=== PATIENT | male | born 1985 | race Caucasian/White ===

== ENCOUNTER → 2018-06-01 | Outpatient (CLI) | payer MEDICAID ==
[2018-06-01 14:03] LABS: ABSOLUTE EOSINOPHILS # (AUTO) 0.1 10^3/uL (0.0-0.6); ABSOLUTE LYMPHOCYTES (AUTO) 1.5 10^3/uL (0.5-4.7); ABSOLUTE MONOCYTES (AUTO) 0.5 10^3/uL (0.1-1.4); ABSOLUTE NEUT (AUTO) 3.2 10^3/uL (1.7-8.2); BASOPHILS % (AUTO) 0.8 % (0-2); EOSINOPHILS % (AUTO) 1.4 % (0-6); HEMATOCRIT 48.2 % (37.9-51.0); HEMOGLOBIN 16.7 g/dL (13.5-17.0); LYMPHOCYTES % (AUTO) 27.6 % (13-45); MEAN CORPUSCULAR HEMOGLOBIN 29.8 pg (27.0-33.4); MEAN CORPUSCULAR HGB CONC 34.6 g/dL (32.0-36.0); MEAN CORPUSCULAR VOLUME 86 fl (80-97); MONOCYTES % (AUTO) 9.2 % (3-13); PLATELET COUNT 194 10^3/uL (150-450); RED CELL DISTRIBUTION WIDTH 13.5 % (11.5-14.0); TOTAL CELLS COUNTED % (AUTO) 100 %; WHITE BLOOD COUNT 5.3 10^3/uL (4.0-10.5)
[2018-06-01 14:22] LABS: ALANINE AMINOTRANSFERASE 13 U/L (21-72); ALBUMIN 4.9 g/dL (3.5-5.0); ALKALINE PHOSPHATASE 93 U/L (38-126); ASPARTATE AMINO TRANSFERASE 21 U/L (17-59); BILIRUBIN,DIRECT 0.3 mg/dL (0.0-0.4); BILIRUBIN,TOTAL 0.4 mg/dL (0.2-1.3); TOTAL PROTEIN 8.2 g/dL (6.3-8.2)
== END ==
LOC: CAR 12:25
PROVIDERS: ATTEND Specialist
DX: G40.909 Epilepsy, unspecified, not intractable, without status epilepticus (principal); Z79.899 Other long term (current) drug therapy
CPT/HCPCS: 80076; 80184; 85025

== ENCOUNTER → 2019-02-26 | Outpatient (CLI) | payer MEDICAID ==
[2019-02-26 09:36] LABS: CHOLESTEROL 256.59 mg/dL (0-200); TRIGLYCERIDES 130 mg/dL (<150)
[2019-02-26 09:50] LABS: DIRECT LDL 154 mg/dL (<100)
== END ==
LOC: CAR 08:27
PROVIDERS: ATTEND Family Medicine
DX: E78.5 Hyperlipidemia, unspecified (principal); Z79.899 Other long term (current) drug therapy
CPT/HCPCS: 80061

== ENCOUNTER 2019-08-06 17:11 | Inpatient (IN) | payer MEDICAID ==
--- NOTE | 2019-08-06 18:08 | ER Document Report ---
ED General - General Mode of Arrival: Medic Information source: Emergency Med Personnel, [facility] Records, Outside Facility Records TRAVEL OUTSIDE OF THE [place] IN LAST 30 DAYS: No <PENG MARINELLI - Last Filed: 08/06/19 21:13> <JOSE JUAN CIFUENTES HERMAN - Last Filed: 08/07/19 00:24> - General Chief Complaint: Probable Seizure Stated Complaint: POSSIBLE SEIZURE Time Seen by Provider: 08/06/19 17:53 Primary Care Provider: COLLEEN JOSE MD [Primary Care Provider] - Follow up as needed Notes: This 34-year-old male patient brought the emergency room from the assisted. He was found on his back and had vomited. He appeared postictal, so they suspected he had had a seizure. They noted shallow respirations with a pulse ox of 92%. He has had a seizure and aspirated in the past. He does have cerebral palsy, spastic quadriplegia, profound mental retardation, seizure disorder, legally blind, with gastroesophageal reflux disease. Patient was a precipitous delivery at 28 weeks, on a ventilator 108 days severe RDS, multiple bilateral pneumothoraces requiring a total of 10 chest tubes during the first 6 weeks of life. Received total of 39 units packed RBCs, bilateral grade 3 hemorrhages with evidence of bilateral cystic encephalomalacia. Discharged home at the age of 5 months with apnea, bradycardia, feeding difficulties, failure to thrive, bronchopulmonary dysplasia, pneumonia and otitis media, and has continued to require multiple hospitalizations until he was around 10 years old. (PENG MARINELLI) - Related Data Allergies/Adverse Reactions: amoxicillin trihydrate [From Augmentin] Allergy (Unknown, Verified 01/25/11 08:45) Pertussis Immune Globulin * [Pertussis Immune Globulin] Allergy (Unknown, Verified 01/23/11 08:50) Potassium Clavulanate * [From Augmentin] Allergy (Unknown, Verified 01/25/11 08:45) Past Medical History - General Information source: Emergency Med Personnel, [facility] Records, Outside Facility Records - Social History Smoking Status: Never Smoker Cigarette use (# per day): No Chew tobacco use (# tins/day): No Smoking Education Provided: No Frequency of alcohol use: None Drug Abuse: None Lives with: [facility] Family History: Reviewed & Not Pertinent Patient has suicidal ideation: No Patient has homicidal ideation: No - Past Medical History Cardiac Medical History: Reports: Hx Hypercholesterolemia Pulmonary Medical History: Reports: Hx Pneumonia, Hx Intubation, Hx Respiratory Failure, Other - Reactive airways/chronic bronchitis EENT Medical History: Reports: Other - Blind Neurological Medical History: Reports: Hx Seizures, Other - Microcephaly, profound MR, spastic quadriplegia,cerebral palsy GI Medical History: Reports: Hx Gastroesophageal Reflux Disease, Hx Hiatal Hernia Musculoskeletal Medical History: Reports Other - Spastic quadriplegia Psychiatric Medical History: Reports: Other Past Surgical History: Reports: Other - Multiple chest tubes for bilateral pneumothoraces at . <PENG MARINELLI - Last Filed: 08/06/19 21:13> Physical Exam - Vital signs Interpretation: Hypoxic, Tachypneic - General General appearance: Alert In distress: Mild - HEENT Head: Atraumatic. No: Normocephalic - Microcephalic Eyes: Other - Bilateral blind Pupils: PERRL - Respiratory Respiratory status: Tachypnea Breath sounds: Rhonchi. No: Wheezing - Cardiovascular Rhythm: Regular Heart sounds: Normal auscultation Murmur: No - Abdominal Inspection: Normal Distension: Distended - Slightly distended, Tympanitic Bowel sounds: Normal Tenderness: Other - Palpating the abdomen the patient does grimace slightly. - Back Back: Normal - Neurological Neuro grossly intact: No - Psychological Associated symptoms: Other - Cannot evaluate due to his underlying cerebral dysfunction. - Skin Skin Temperature: Warm Skin Moisture: Dry Skin Color: Normal <PENG MARINELLI - Last Filed: 08/06/19 21:13> - Vital signs Vitals: Pulse Ox 99 08/06/19 17:16 - Extremities Notes: Patient has spastic quadriplegia with bilateral flexion contractures (PENG MARINELLI) - Neurological Notes: Patient has severe MR with spastic quadriplegia. He responds to noxious st imulus. (PENG MARINELLI) Course - Diagnostic Test Radiology reviewed: Image reviewed, Reports reviewed - Right basilar infiltrate - EKG Interpretation by Me EKG shows normal: Sinus rhythm, [place], Intervals, QRS Complexes. abnormal: ST-T Waves - Abnormal anterior lateral T abnormalities Rate: Tachycardia - 129 P Waves: LAE When compared to previous EKG there are: No significant change - Consults Dr. Blackburn Time consulted: 20:10 Consulted provider: will come to ER - Will come see the patient and start a central line. - Transfer of Care Care transferred to following provider: Dr. Cifuentes <PENG MARINELLI - Last Filed: 08/06/19 21:13> - Laboratory Result Diagrams: 08/06/19 22:12 08/06/19 22:12 - Consults dr. hu Time consulted: 00:20 - Agreed to admit patient to IMCU given respiratory rate improved Consulted provider: will see as inpatient <JOSE JUAN CIFUENTES IV - Last Filed: 08/07/19 00:24> - Re-evaluation Re-evalutation: 08/06/19 19:15 Chest x-ray shows a right lower lobe infiltrate consistent with aspiration. At this time patient's pulse ox is 90% on room air. Nasal cannula O2 had been ordered when he came in, but has not been applied yet I will asked the nurse to do that now. He does seem to have some retracting, audible rhonchi and is tachypneic. 08/06/19 20:20 Patient's pulse ox was only 92% on 2 L nasal cannula. I increased him to 4 L and O2 sat came up to 95%. At this time he has heart rate of 110, blood pressure 134/91, respiratory rate of 60. (PENG MARINELLI) 08/07/19 00:04 Patient was reevaluated by this MD. Patient's imaging and lab results were also reviewed. At this time the patient does not appear to be in acute respiratory distress. Patient was reportedly much more tachypneic earlier with a respiratory rate of about 60. At this point the patient does not seem to be breathing more than 20-24 times a minute and does not appear to been in any acute respiratory distress or at risk for impending respiratory failure at this time. Given his improvement, I do not feel the patient needs urgent ICU consultation as I do not feel he is at risk or showing clinical appearance of impending respiratory failure. Dr. Hu has been paged; he is covering for Dr. Jose. I am awaiting his return call to admit the patient. (JOSE JUAN CIFUENTES IV) - Vital Signs Vital signs: Temp Pulse Resp BP Pulse Ox 97.6 F 98 23 H 106/84 94 08/06/19 17:30 08/06/19 17:30 08/06/19 23:04 08/06/19 23:04 08/06/19 23:04 - Laboratory Laboratory results interpreted by me: 08/06/19 08/06/19 08/06/19 20:30 22:12 22:12 RBC 5.60 H Band Neutrophils % 9 H Lymphocytes % (Manual) 5 L ABG pO2 ABG HCO3 ABG O2 Saturation Potassium 3.5 L Glucose 145 H Urine Glucose (UA) 50 H Urine Ketones 20 H 08/06/19 22:50 RBC Band Neutrophils % Lymphocytes % (Manual) ABG pO2 62.1 L ABG HCO3 24.9 H ABG O2 Saturation 92.1 L Potassium Glucose Urine Glucose (UA) Urine Ketones - Consults dr. hu Reason for consultation: 08/07/19 00:21 aspiration pna (JOSE JUAN CIFUENTES IV) - Transfer of Care Notes: 08/06/19 21:13 Pending labs, ABG and KUB. Dr. Hu requests consultation with the inspecting supervisor if the patient is not an obvious ICU admission. (PENG MARINELLI) Critical Care Note - Critical Care Note Total time excluding time spent on procedures (mins): 40 <PENG MARINELLI - Last Filed: 08/06/19 21:13> Discharge <PENG MARINELLI - Last Filed: 08/06/19 21:13> - Discharge Admitting Provider: [facility] Unit Admitted: IMCU <JOSE JUAN CIFUENTES IV - Last Filed: 08/07/19 00:24> - Discharge Clinical Impression: Spastic quadriplegic cerebral palsy, Seizure disorder, Hypoxia Aspiration pneumonia Qualifiers: Aspiration pneumonia type: unspecified Laterality: right Lung location: lower lobe of lung Qualified Code(s): J69.0 - Pneumonitis due to inhalation of food an d vomit Cerebral palsy Qualifiers: Cerebral palsy type: spastic quadriplegic Qualified Code(s): G80.0 - Spastic quadriplegic cerebral palsy Dysphagia Qualifiers: Dysphagia type: unspecified Qualified Code(s): R13.10 - Dysphagia, unspecified Condition: Good Disposition: ADMITTED INPATIENT Referrals: COLLEEN JOSE MD [Primary Care Provider] - Follow up as needed
--- NOTE | 2019-08-06 18:10 | RADIOLOGY REPORT (SQ) ---
EXAM DESCRIPTION: CHEST SINGLE VIEW IMAGES COMPLETED DATE/TIME: 08/06/2019 6:01 pm REASON FOR STUDY: aspiration COMPARISON: 11/02/2018. NUMBER OF VIEWS: One view. TECHNIQUE: Single frontal radiographic view of the chest acquired. LIMITATIONS: None. FINDINGS: LUNGS AND PLEURA: Ill-defined patchy airspace disease in the right base is concerning for infiltrate. Aspiration is in the differential. Lungs are otherwise relatively clear. MEDIASTINUM AND HILAR STRUCTURES: No masses. Contour normal. HEART AND VASCULAR STRUCTURES: Heart normal in size. Normal vasculature. BONES: No acute findings. HARDWARE: None in the chest. OTHER: No other significant finding. IMPRESSION: Right base infiltrate. TECHNICAL DOCUMENTATION: JOB ID: [id number] 2010 [employer]- All Rights Reserved Reading location - IP/workstation name: [email or web address]
[2019-08-06] MEDS ORDERED: IPRATROPIUM/ALBUTEROL 0.5-2.5 MG/3 ML AMPUL NEB ONE (19:14)
[2019-08-06] MEDS ORDERED: METRONIDAZOLE 500 MG/NS RTU 500 MG/100 ML RTUPB IV ONE (19:19)
[2019-08-06] MEDS ORDERED: CEFTRIAXONE 1 GM/D5W RTU 1 GM/50 ML RTUPB IV ONE (19:19)
[2019-08-06] MEDS ORDERED: ALBUTEROL SULFATE 0.083% NEB 2.5 MG/3 ML AMPUL NEB ONE (20:22)
[2019-08-06 20:46] LABS: APPEARANCE,URINE CLEAR; BILIRUBIN,URINE NEGATIVE (NEGATIVE); COLOR,URINE YELLOW; GLUCOSE, URINE 50 mg/dL (NEGATIVE); KETONES,URINE 20 mg/dL (NEGATIVE); LEUKOCYTE ESTERASE,URINE NEGATIVE (NEGATIVE); NITRITE,URINE NEGATIVE (NEGATIVE); PROTEIN,URINE NEGATIVE (NEGATIVE); URINE SPECIFIC GRAVITY 1.017; UROBILINOGEN,URINE NEGATIVE mg/dL (<2.0)
--- NOTE | 2019-08-06 21:34 | RADIOLOGY REPORT (SQ) ---
CLINICAL INDICATION: upright, distention, resonant, vomiting. TECHNIQUE: Single portable upright image(s) of the abdomen. Imaging centered on the diaphragm COMPARISON: None. FINDINGS: Motion artifact. No evidence of high grade obstruction. No evidence of free air. Scoliosis. Pelvis not included in [id number]. IMPRESSION: No acute intra-abdominal process is identified.
--- NOTE | 2019-08-06 21:56 | RADIOLOGY REPORT (SQ) ---
EXAM DESCRIPTION: XR CHEST 1 VIEW COMPLETED DATE/TME: 08/06/2019 00:00 CLINICAL HISTORY: 34 years, Male, central line verification COMPARISON: Prior study from earlier the same day NUMBER OF VIEWS: One TECHNIQUE: Single frontal view of the chest was obtained portably LIMITATIONS: None. FINDINGS: Interval placement of right IJ approach central venous catheter with its tip located in the upper SVC. Cardiac and mediastinal contours are stable. Patchy right basilar opacity is noted, slightly increased from the prior. Left lung is overall clear. No pneumothorax or large pleural effusion. IMPRESSION: Interval placement of right IJ approach central venous catheter with its tip located in the upper SVC. Patchy right basilar airspace disease, slightly increased from the prior. Consider atelectasis or pneumonia to include aspiration. copyright 2010 [employer]- All Rights Reserved
[2019-08-06 22:38] LABS: HEMATOCRIT 48.3 % (37.9-51.0); HEMOGLOBIN 16.9 g/dL (13.5-17.0); MEAN CORPUSCULAR HEMOGLOBIN 30.3 pg (27.0-33.4); MEAN CORPUSCULAR HGB CONC 35.1 g/dL (32.0-36.0); MEAN CORPUSCULAR VOLUME 86 fl (80-97); PLATELET COUNT 165 10^3/uL (150-450); RED CELL DISTRIBUTION WIDTH 13.6 % (11.5-14.0); WHITE BLOOD COUNT 8.4 10^3/uL (4.0-10.5)
[2019-08-06 22:51] LABS: ALBUMIN 4.6 g/dL (3.5-5.0); ALKALINE PHOSPHATASE 104 U/L (38-126); ANION GAP 9 (5-19); ASPARTATE AMINO TRANSFERASE 26 U/L (17-59); BILIRUBIN,TOTAL 0.5 mg/dL (0.2-1.3); BLOOD UREA NITROGEN 11 mg/dL (7-20); CALCIUM 9.3 mg/dL (8.4-10.2); CARBON DIOXIDE 29 mmol/L (22-30); CHLORIDE 101 mmol/L (98-107); GLUCOSE 145 mg/dL (75-110); POTASSIUM 3.5 mmol/L (3.6-5.0); TOTAL PROTEIN 7.8 g/dL (6.3-8.2)
[2019-08-06 23:02] LABS: ABSOLUTE LYMPHOCYTES# (MANUAL) 0.7 10^3/uL (0.5-4.7); ABSOLUTE MONOCYTES # (MANUAL) 0.4 10^3/uL (0.1-1.4); BAND NEUTROPHILS % (MANUAL) 9 % (3-5); BASOPHILS % (MANUAL) 0 % (0-2); EOSINOPHILS % (MANUAL) 0 % (0-6); LYMPHOCYTES % (MANUAL) 5 % (13-45); MONOCYTES % (MANUAL) 5 % (3-13); SEGMENTED NEUTROPHILS % (MAN) 78 % (42-78); TOTAL CELLS COUNTED 100
--- NOTE | 2019-08-06 23:02 | Operative Report ---
Nonrecallable Operative Report DATE OF SURGERY: 08/06/19 PREOPERATIVE DIAGNOSIS: pneumonia POSTOPERATIVE DIAGNOSIS: pneumonia OPERATION: central line placemnt via rt internal jugular approach. SURGEON: BRODIE ROMAN ANESTHESIA: Local TISSUE REMOVED OR ALTERED: none COMPLICATIONS: none ESTIMATED BLOOD LOSS: 5cc INTRAOPERATIVE FINDINGS: see note PROCEDURE: Right internal jugular vein was accessed via a 18-gauge needle after localization with 1% lidocaine plain. Through the needle a J-wire was placed into the superior vena cava and then a small ashely was made with a 11 blade in the skin. The dilator was then used to dilate the tract and a triple lumen catheter was placed over the wire into the superior vena cava. It was fixed in place with 2-0 silk suture. It flushed and withdrew easily. A sterile dressing was applied. Chest x-ray confirmed good placement.
[2019-08-06 23:04] LABS: ARTERIAL BLOOD BASE EXCESS 0.4 mmol/L; ARTERIAL BLOOD FIO2 3.5L; ARTERIAL BLOOD HCO3 24.9 mmol/L (20-24); ARTERIAL BLOOD O2 SATURATION 92.1 % (94-98); ARTERIAL BLOOD PH 7.41 (7.35-7.45); ARTERIAL BLOOD PO2 62.1 mmHg (80-100); ARTERIAL BLOOD TOTAL CO2 26.1 mmol/L (23-27)
[2019-08-06 23:04] LABS: OVALOCYTES SLIGHT; PLATELET COMMENT ADEQUATE; POIKILOCYTOSIS SLIGHT
[2019-08-07] MEDS ORDERED: ACETAMINOPHEN 325 MG TABLET PO PRN (05:13)
[2019-08-07] MEDS: CEFEPIME 1 GM/D5W RTU 1 GM/50 ML RTUPB IV SCH ×2 (05:43→17:41)
[2019-08-07] MEDS: LEVOFLOXACIN 500 MG/D5W RTU 500 MG/100 ML RTUPB IV SCH (09:33)
[2019-08-07] MEDS: ENOXAPARIN SODIUM INJ 40 MG/0.4 ML DISP.SYRIN SUBCUT SCH (09:34)
[2019-08-07] MEDS: PANTOPRAZOLE SODIUM 40 MG TABLET.DR PO SCH (09:34)
--- NOTE | 2019-08-07 17:54 | PDOC H&P ---
History of Present Illness Admission Date/PCP: 08/07/19 00:46 MARCELINO HICKS MD Patient complains of: POSSIBLE SEIZURE WITH CHANGE IN MENTAL STATUS History of Present Illness: MALIK SALDANA is a 34 year old male patient of Dr. Marcelino Hicks resident at a intermediate who was brought to the ED after he was found unresponsive with concern about possible seizure with aspiration and postictal phase un responsiveness. Facility staff reported finding vomitus on the patient. There was associated report of shallow respiration with oxygen saturation at 92%. His initial ED evaluation was significant for tachycardia, hypoxemia, and abnormal chest X ray that suggested right basal infiltrate. His morbidities include cerebral palsy with spastic quadriplegia, seizure disorder and recurrent episodes of aspiration. He was advised hospitalization for further evaluation and management. His full morbidities are as listed below. Past Medical History Cardiac Medical History: Reports: Hyperlipidema Pulmonary Medical History: Reports: Intubation, Pneumonia, Respiratory Failure, Other - Reactive airways/chronic bronchitis Neurological Medical History: Reports: Seizures, Other - Microcephaly, profound MR, spastic quadriplegia,cerebral palsy GI Medical History: Reports: Gastroesophageal Reflux Disease, Hiatal Hernia Musculoskeltal Medical History: Reports: Other - Spastic quadriplegia Psychiatric Medical History: Reports: Other Denies: Depression Traumatic Medical History: Denies: Pneumothorax Hematology: Denies: Sickle Cell Disease Infectious Medical History: Denies: HIV Past Surgical History Past Surgical History: Reports: Other - Multiple chest tubes for bilateral pneumothoraces at . Social History Lives with: Shelter Smoking Status: Never Smoker Frequency of Alcohol Use: None Hx Recreational Drug Use: No Drugs: None Hx Prescription Drug Abuse: No Family History Family History: Reviewed & Not Pertinent Parental Family History Reviewed: No - unable to contribute to his medial history due to severe cerebral palsy Children Family History Reviewed: Unknown Sibling(s) Family History Reviewed.: Unknown Medication/Allergy Home Medications: Baclofen [Baclofen 20 mg Tablet] 20 mg PO Q6 10/31/18 Cholecalciferol (Vitamin D3) [Vitamin D3 1000 Unit Tablet] 1,000 unit PO DAILY 10/31/18 Clindamycin Phos/Benzoyl Perox [Benzaclin Gel 50G Pump] 50 pump TP BID 10/31/18 Diazepam [Diastat Acudial 10 mg/2 ml Rectal Gel] 10 mg NM Q6HP PRN 10/31/18 Omeprazole Magnesium [Prilosec Otc] 20 mg PO BID 10/31/18 Phenobarbital [Phenobarbital 64.8 mg Tablet] 128 mg PO QHS 10/31/18 Promethazine HCl [Phenergan 25 mg Supp.rect] 25 mg NM Q6HP PRN 10/31/18 Sennosides [Senna] 17.2 mg PO QHS 10/31/18 Ipratropium/Albuterol Sulfate [Duoneb 3 ml Ampul] 3 ml NEB RTQ8HP PRN #120 vial.neb 11/04/18 Atorvastatin Calcium [Lipitor 20 mg Tablet] 20 mg PO QHS 08/07/19 Allergies/Adverse Reactions: amoxicillin trihydrate [From Augmentin] Allergy (Unknown, Verified 08/07/19 01:37) Pertussis Immune Globulin * [Pertussis Immune Globulin] Allergy (Unknown, Verified 08/07/19 01:37) Potassium Clavulanate * [From Augmentin] Allergy (Unknown, Verified 08/07/19 01:37) Review of Systems ROS unobtainable: Due to mental status - severe cerebral palsy Physical Exam Vital Signs: Temp Pulse Resp BP Pulse Ox 99.7 F 109 H 32 H 119/64 91 L 08/07/19 16:23 08/07/19 16:23 08/07/19 16:23 08/07/19 16:23 08/07/19 16:23 Intake & Output 08/06/19 08/07/19 08/08/19 06:59 06:59 06:59 Intake Total 150 Output Total 80 Balance 70 Weight 56.9 kg General appearance: PRESENT: mild distress - on supplemental oxygen via nasal cannula Head exam: PRESENT: atraumatic, normocephalic Eye exam: PRESENT: conjunctiva pink, PERRLA. ABSENT: scleral icterus Ear exam: PRESENT: normal external ear exam Mouth exam: PRESENT: moist Teeth exam: PRESENT: edentulous Respiratory exam: PRESENT: clear to auscultation carmen, crackles - scattered, decreased breath sounds - at lung bases Cardiovascular exam: PRESENT: RRR, +S1, +S2. ABSENT: diastolic murmur, rubs, systolic murmur Vascular exam: ABSENT: pallor GI/Abdominal exam: PRESENT: normal bowel sounds, soft Rectal exam: PRESENT: deferred Extremities exam: ABSENT: pedal edema Musculoskeletal exam: PRESENT: deformity - contracture deformity due to spastic quadriplegia from severe cerebral palsy Neurological exam: PRESENT: alert, awake Skin exam: PRESENT: dry, warm Results Laboratory Results: 08/06/19 22:12 08/06/19 22:12 08/06/19 08/06/19 08/06/19 20:30 22:12 22:12 WBC 8.4 RBC 5.60 H Hgb 16.9 Hct 48.3 MCV 86 MCH 30.3 MCHC 35.1 RDW 13.6 Plt Count 165 Seg Neutrophils % Not Reportable Carbonic Acid HCO3/H2CO3 Ratio ABG pH ABG pCO2 ABG pO2 ABG HCO3 ABG O2 Saturation ABG Base Excess FiO2 Sodium 139.1 Potassium 3.5 L Chloride 101 Carbon Dioxide 29 Anion Gap 9 BUN 11 Creatinine 0.56 Est GFR ( Amer) > 60 Glucose 145 H Lactic Acid Calcium 9.3 Magnesium 1.9 Total Bilirubin 0.5 AST 26 Alkaline Phosphatase 104 Total Protein 7.8 Albumin 4.6 Urine Color YELLOW Urine Appearance CLEAR Urine pH 6.0 Ur Specific [place] 1.017 Urine Protein NEGATIVE Urine Glucose (UA) 50 H Urine Ketones 20 H Urine Blood NEGATIVE Urine Nitrite NEGATIVE Ur Leukocyte Esterase NEGATIVE Urine WBC (Auto) 2 Urine RBC (Auto) 0 08/06/19 08/06/19 22:12 22:50 WBC RBC Hgb Hct MCV MCH MCHC RDW Plt Count Seg Neutrophils % Carbonic Acid 1.20 HCO3/H2CO3 Ratio 20:1 ABG pH 7.41 ABG pCO2 40.0 ABG pO2 62.1 L ABG HCO3 24.9 H ABG O2 Saturation 92.1 L ABG Base Excess 0.4 FiO2 3.5L Sodium Potassium Chloride Carbon Dioxide Anion Gap BUN Creatinine Est GFR ( Amer) Glucose Lactic Acid 1.4 Calcium Magnesium Total Bilirubin AST Alkaline Phosphatase Total Protein Albumin Urine Color Urine Appearance Urine pH Ur Specific Stopover Urine Protein Urine Glucose (UA) Urine Ketones Urine Blood Urine Nitrite Ur Leukocyte Esterase Urine WBC (Auto) Urine RBC (Auto) 08/06/19 08/06/19 22:12 22:12 Creatine Kinase 95 Troponin I 0.021 Impressions: Chest X-Ray 08/06/19 00:00 IMPRESSION: Interval placement of right IJ approach central venous catheter with its tip located in the upper SVC. Patchy right basilar airspace disease, slightly increased from the prior. Consider atelectasis or pneumonia to include aspiration. copyright 2010 [employer]- All Rights Reserved KUB X-Ray 08/06/19 20:45 IMPRESSION: No acute intra-abdominal process is identified. Assessment & Plan - Diagnosis (1) Aspiration pneumonia Qualifiers: Aspiration pneumonia type: unspecified Laterality: right Lung location: lower lobe of lung Qualified Code(s): J69.0 - Pneumonitis due to inhalation of food and vomit Is this a current diagnosis for this admission?: Yes Plan: See covering admitting attending physician orders for details about care plan. (2) Hypoxia Is this a current diagnosis for this admission?: Yes Plan: See covering admitting attending physician orders for details about care plan. (3) Seizure disorder Is this a current diagnosis for this admission?: Yes Plan: See covering admitting attending physician orders for details about care plan. (4) Cerebral palsy Qualifiers: Cerebral palsy type: spastic quadriplegic Qualified Code(s): G80.0 - Spastic quadriplegic cerebral palsy Is this a current diagnosis for this admission?: Yes Plan: See covering admitting attending physician orders for details about care plan. (5) Spastic quadriplegic cerebral palsy Is this a current diagnosis for this admission?: Yes Plan: See covering admitting attending physician orders for details about care plan. - Time Time Spent: 50 to 70 Minutes Medications reviewed and adjusted accordingly: Yes Anticipated discharge: Home - skilled nursing upon discharge - Inpatient Certification Based on my medical assessment, after consideration of the patient's comorbidities, presenting symptoms, or acuity I expect that the services needed warrant INPATIENT care.: Yes I certify that my determination is in accordance with my understanding of Medicare's requirements for reasonable and necessary INPATIENT services [42 CFR 412.3e].: Yes Medical Necessity: Significant Comorbidiites Make Outpatient Treatment Too Risky, Need Close Monitoring Due to Risk of Patient Decompensation, Need For IV Fluids, Need For Continuous Telemetry Monitoring, Need for IV Antibiotics, Risk of Complication if Not Cared For in Hospital, Risk of Diagnosis Which Will Require Inpatient Eval/Care/Monitoring Post Hospital Care: D/C Labor Relations Consultant Documentation - Plan Summary Plan Summary: See covering admitting attending physician orders for details about care plan.
[2019-08-07] MEDS ORDERED: DIAZEPAM 10 MG/2 ML RECTAL GEL KIT PR PRN (17:55)
[2019-08-07] MEDS ORDERED: IPRATROPIUM/ALBUTEROL 0.5-2.5 MG/3 ML AMPUL NEB PRN (17:55)
[2019-08-07] MEDS ORDERED: PROMETHAZINE HCL 25 MG SUPP.RECT PR PRN (17:55)
[2019-08-07] MEDS: BACLOFEN 20 MG TABLET PO SCH (18:42)
[2019-08-07] MEDS ORDERED: (PENDING PHARMACY ID) (Sennosides [Senna] 17.2 MG) PO SCH (22:00)
[2019-08-07] MEDS: ATORVASTATIN CALCIUM 20 MG TABLET PO SCH (22:08)
[2019-08-07] MEDS: PHENOBARBITAL 64.8 MG TABLET PO SCH (22:08)
[2019-08-08] MEDS ORDERED: BACLOFEN 20 MG TABLET ONE (01:56)
[2019-08-08] MEDS: BACLOFEN 20 MG TABLET PO SCH ×4 (02:08→18:15)
[2019-08-08] MEDS: CEFEPIME 1 GM/D5W RTU 1 GM/50 ML RTUPB IV SCH ×2 (05:03→18:15)
[2019-08-08 06:00] LABS: ABSOLUTE LYMPHOCYTES (AUTO) 1.2 10^3/uL (0.5-4.7); ABSOLUTE NEUT (AUTO) 9.2 10^3/uL (1.7-8.2); BASOPHILS % (AUTO) 0.2 % (0-2); EOSINOPHILS % (AUTO) 0.2 % (0-6); HEMOGLOBIN 15.2 g/dL (13.5-17.0); LYMPHOCYTES % (AUTO) 10.5 % (13-45); MEAN CORPUSCULAR HEMOGLOBIN 29.9 pg (27.0-33.4); MEAN CORPUSCULAR HGB CONC 34.4 g/dL (32.0-36.0); MEAN CORPUSCULAR VOLUME 87 fl (80-97); PLATELET COUNT 176 10^3/uL (150-450); RED BLOOD COUNT 5.06 10^6/uL (4.35-5.55); RED CELL DISTRIBUTION WIDTH 13.7 % (11.5-14.0); SEGMENTED NEUTROPHILS % (AUTO) 80.1 % (42-78); TOTAL CELLS COUNTED % (AUTO) 100 %; WHITE BLOOD COUNT 11.5 10^3/uL (4.0-10.5)
[2019-08-08 06:31] LABS: ALBUMIN 4.2 g/dL (3.5-5.0); ALKALINE PHOSPHATASE 75 U/L (38-126); ANION GAP 9 (5-19); ASPARTATE AMINO TRANSFERASE 27 U/L (17-59); BILIRUBIN,TOTAL 0.6 mg/dL (0.2-1.3); BLOOD UREA NITROGEN 17 mg/dL (7-20); CALCIUM 9.3 mg/dL (8.4-10.2); CARBON DIOXIDE 29 mmol/L (22-30); CHLORIDE 100 mmol/L (98-107); GLUCOSE 115 mg/dL (75-110); TOTAL PROTEIN 7.2 g/dL (6.3-8.2)
[2019-08-08] MEDS: LEVOFLOXACIN 500 MG/D5W RTU 500 MG/100 ML RTUPB IV SCH (09:50)
[2019-08-08] MEDS: ENOXAPARIN SODIUM INJ 40 MG/0.4 ML DISP.SYRIN SUBCUT SCH (09:51)
[2019-08-08] MEDS: PANTOPRAZOLE SODIUM 40 MG TABLET.DR PO SCH (10:00)
[2019-08-08] MEDS: CHOLECALCIFEROL (D3) 1,000 UNIT (25 MCG) TABLET PO SCH (10:00)
--- NOTE | 2019-08-08 10:23 | EKG REPORT ---
SEVERITY:- ABNORMAL ECG - SINUS TACHYCARDIA PROBABLE LEFT ATRIAL ABNORMALITY ABNORMAL T, CONSIDER ISCHEMIA, ANT-LAT LEADS : Confirmed by: Kimberly Erazo 08-Aug-2019 10:22:24
[2019-08-08] MEDS ORDERED: DIAZEPAM INJ 10 MG/2 ML DISP.SYRIN ONE (13:16)
[2019-08-08] MEDS ORDERED: DIAZEPAM INJ 10 MG/2 ML DISP.SYRIN IV ONE (13:30)
[2019-08-08] MEDS ORDERED: DIAZEPAM INJ 10 MG/2 ML DISP.SYRIN IV PRN (16:15)
--- NOTE | 2019-08-08 16:15 | PDOC PROGRESS REPORT ---
Subjective Progress Note for:: 08/08/19 Subjective:: Patient demonstrated tachycardia that may be due to underlying anxiety and inability to take medication orally. No reported fever. Remain on supplemental oxygen. Reason For Visit: SPASTIC QUADRIPLEGIC CEREBRAL PALSY,SEIZURE Physical Exam Vital Signs: Temp Pulse Resp BP Pulse Ox 98.9 F 138 H 18 114/76 91 L 08/08/19 11:59 08/08/19 14:00 08/08/19 11:59 08/08/19 11:59 08/08/19 11:59 Intake & Output 08/07/19 08/08/19 08/09/19 06:59 06:59 06:59 Intake Total 200 150 100 Output Total 80 450 Balance 120 -300 100 Weight 56.9 kg 52.8 kg General appearance: PRESENT: mild distress - on supplemental oxygen via nasal cannula Head exam: PRESENT: atraumatic, normocephalic Eye exam: PRESENT: conjunctiva pink. ABSENT: scleral icterus Mouth exam: PRESENT: moist Respiratory exam: PRESENT: clear to auscultation carmen, decreased breath sounds Cardiovascular exam: PRESENT: RRR, tachycardia. ABSENT: diastolic murmur, rubs, systolic murmur Vascular exam: ABSENT: pallor GI/Abdominal exam: PRESENT: normal bowel sounds. ABSENT: tenderness Extremities exam: ABSENT: pedal edema Musculoskeletal exam: PRESENT: deformity - spastic contracture deformity involving all extremities Neurological exam: PRESENT: awake Skin exam: PRESENT: dry, warm Results Laboratory Results: 08/08/19 05:10 08/08/19 05:10 08/08/19 08/08/19 05:10 05:10 WBC 11.5 H RBC 5.06 Hgb 15.2 Hct 44.0 MCV 87 MCH 29.9 MCHC 34.4 RDW 13.7 Plt Count 176 Seg Neutrophils % 80.1 H Sodium 138.4 Potassium 4.0 Chloride 100 Carbon Dioxide 29 Anion Gap 9 BUN 17 Creatinine 0.75 Est GFR ( Amer) > 60 Glucose 115 H Calcium 9.3 Total Bilirubin 0.6 AST 27 Alkaline Phosphatase 75 Total Protein 7.2 Albumin 4.2 08/06/19 08/06/19 22:12 22:12 Creatine Kinase 95 Troponin I 0.021 Impressions: Chest X-Ray 08/06/19 00:00 IMPRESSION: Interval placement of right IJ approach central venous catheter with its tip located in the upper SVC. Patchy right basilar airspace disease, slightly increased from the prior. Consider atelectasis or pneumonia to include aspiration. copyright 2011 [employer]- All Rights Reserved KUB X-Ray 08/06/19 20:45 IMPRESSION: No acute intra-abdominal process is identified. Assessment & Plan - Diagnosis (1) Aspiration pneumonia Qualifiers: Aspiration pneumonia type: unspecified Laterality: right Lung location: lower lobe of lung Qualified Code(s): J69.0 - Pneumonitis due to inhalation of food and vomit Is this a current diagnosis for this admission?: Yes (2) Hypoxia Is this a current diagnosis for this admission?: Yes (3) Seizure disorder Is this a current diagnosis for this admission?: Yes (4) Cerebral palsy Qualifiers: Cerebral palsy type: spastic quadriplegic Qualified Code(s): G80.0 - Spastic quadriplegic cerebral palsy Is this a current diagnosis for this admission?: Yes (5) Spastic quadriplegic cerebral palsy Is this a current diagnosis for this admission?: Yes - Time Time Spent with patient: 25-34 minutes Level of Care: IMCU Medications reviewed and adjusted accordingly: Yes Anticipated discharge: Other - Domicilary mcc Within: Other - Inpatient Certification Based on my medical assessment, after consideration of the patient's comorbidities, presenting symptoms, or acuity I expect that the services needed warrant INPATIENT care.: Yes I certify that my determination is in accordance with my understanding of Medicare's requirements for reasonable and necessary INPATIENT services [42 CFR 412.3e].: Yes Medical Necessity: Significant Comorbidiites Make Outpatient Treatment Too Risky, Need Close Monitoring Due to Risk of Patient Decompensation, Need For IV Fluids, Need For Continuous Telemetry Monitoring, Need for IV Antibiotics, Risk of Complication if Not Cared For in Hospital, Risk of Diagnosis Which Will Require Inpatient Eval/Care/Monitoring Post Hospital Care: D/C [employer] Install[employer] Documentation - Plan Summary Plan Summary: Maintain on IV Cefepime and Levofloxacin coverage. Maintain on IV Diazepam 2 mg q6 hour prn for anxiety management if pain cannot tolerate oral administration of diazepam 10 mg q 6 hours.
[2019-08-08] MEDS: ATORVASTATIN CALCIUM 20 MG TABLET PO SCH (21:09)
[2019-08-08] MEDS: SENNOSIDES/DOCUSATE 8.6-50 MG 1 EACH TABLET PO SCH (21:09)
[2019-08-08] MEDS: PHENOBARBITAL 64.8 MG TABLET PO SCH (21:09)
[2019-08-09] MEDS: BACLOFEN 20 MG TABLET PO SCH ×5 (00:07→23:06)
[2019-08-09] MEDS: CEFEPIME 1 GM/D5W RTU 1 GM/50 ML RTUPB IV SCH ×2 (05:32→17:54)
[2019-08-09] MEDS ORDERED: LEVALBUTEROL HCL NEB 1.25 MG/3 ML AMPUL NEB PRN (08:06)
--- NOTE | 2019-08-09 08:33 | PDOC PROGRESS REPORT ---
Subjective Progress Note for:: 08/09/19 Subjective:: This is a 34-year-old male admitting in the hospital for aspiration pneumonia Patient is currently on IV antibiotic Patient also have anxiety with elevated heart rate currently doing betterWith the diazepam Patient other than that denied any other symptoms per nursing staff Still requiring 4 L nasal cannula Reason For Visit: SPASTIC QUADRIPLEGIC CEREBRAL PALSY,SEIZURE Physical Exam Vital Signs: Temp Pulse Resp BP Pulse Ox 98.3 F 111 H 20 118/98 H 91 L 08/09/19 07:51 08/09/19 07:51 08/09/19 07:51 08/09/19 07:51 08/09/19 07:51 Intake & Output 08/08/19 08/09/19 08/10/19 06:59 06:59 06:59 Intake Total 200 200 Output Total 450 550 Balance -250 -350 Weight 52.8 kg 53.4 kg General appearance: PRESENT: no acute distress, well-developed, well-nourished Head exam: PRESENT: atraumatic, normocephalic Eye exam: PRESENT: conjunctiva pink, EOMI, PERRLA. ABSENT: scleral icterus Ear exam: PRESENT: normal external ear exam Mouth exam: PRESENT: moist, tongue midline Neck exam: PRESENT: full ROM. ABSENT: carotid bruit, JVD, lymphadenopathy, thyromegaly Respiratory exam: PRESENT: decreased breath sounds Cardiovascular exam: PRESENT: RRR. ABSENT: diastolic murmur, rubs, systolic murmur Pulses: PRESENT: normal dorsalis pedis pul, +2 pedal pulses bilateral Vascular exam: PRESENT: normal capillary refill GI/Abdominal exam: PRESENT: normal bowel sounds, soft. ABSENT: distended, guarding, mass, organolmegaly, rebound, tenderness Rectal exam: PRESENT: deferred Neurological exam: PRESENT: alert, awake. ABSENT: motor sensory deficit Psychiatric exam: PRESENT: appropriate affect, normal mood. ABSENT: homicidal ideation, suicidal ideation Skin exam: PRESENT: dry, intact, warm. ABSENT: cyanosis, rash Results Laboratory Results: 08/08/19 05:10 08/08/19 05:10 08/06/19 08/06/19 22:12 22:12 Creatine Kinase 95 Troponin I 0.021 Impressions: Chest X-Ray 08/06/19 00:00 IMPRESSION: Interval placement of right IJ approach central venous catheter with its tip located in the upper SVC. Patchy right basilar airspace disease, slightly increased from the prior. Consider atelectasis or pneumonia to include aspiration. copyright 2011 [employer]- All Rights Reserved KUB X-Ray 08/06/19 20:45 IMPRESSION: No acute intra-abdominal process is identified. Assessment & Plan - Diagnosis (1) Aspiration pneumonia Qualifiers: Aspiration pneumonia type: unspecified Laterality: right Lung location: lower lobe of lung Qualified Code(s): J69.0 - Pneumonitis due to inhalation of food and vomit Is this a current diagnosis for this admission?: Yes (2) Cerebral palsy Qualifiers: Cerebral palsy type: spastic quadriplegic Qualified Code(s): G80.0 - Spastic quadriplegic cerebral palsy Is this a current diagnosis for this admission?: Yes (3) Hypoxia Is this a current diagnosis for this admission?: Yes (4) Seizure disorder Is this a current diagnosis for this admission?: Yes (5) Spastic quadriplegic cerebral palsy Is this a current diagnosis for this admission?: Yes - Time Time Spent with patient: 15-24 minutes Level of Care: IMCU Medications reviewed and adjusted accordingly: Yes Anticipated discharge: Other Within: Other - Plan Summary Plan Summary: We will get the speech therapy evaluations and modified barium swallow for aspirations continues the current medications repeat the chest x-ray try to wean off from the oxygen's
[2019-08-09] MEDS: CHOLECALCIFEROL (D3) 1,000 UNIT (25 MCG) TABLET PO SCH (09:38)
[2019-08-09] MEDS: PANTOPRAZOLE SODIUM 40 MG TABLET.DR PO SCH (09:38)
[2019-08-09] MEDS: LEVOFLOXACIN 500 MG/D5W RTU 500 MG/100 ML RTUPB IV SCH (09:38)
[2019-08-09] MEDS: ENOXAPARIN SODIUM INJ 40 MG/0.4 ML DISP.SYRIN SUBCUT SCH (09:38)
--- NOTE | 2019-08-09 09:47 | RADIOLOGY REPORT (SQ) ---
EXAM DESCRIPTION: CHEST SINGLE VIEW IMAGES COMPLETED DATE/TIME: 08/09/2019 9:13 am REASON FOR STUDY: aspiration pna COMPARISON: AP view of the chest from 08/02/2019. EXAM PARAMETERS: NUMBER OF VIEWS: One view. TECHNIQUE: An AP view of the chest was obtained. RADIATION DOSE: NA LIMITATIONS: None. FINDINGS: LUNGS AND PLEURA: The patchy opacities in the inferior right hemithorax are unchanged. Th ere is no sizable pleural effusion or pneumothorax. MEDIASTINUM AND HILAR STRUCTURES: No mediastinal or hilar contour abnormality. HEART AND VASCULAR STRUCTURES: The cardiac silhouette and pulmonary vasculature are within normal gonzales its. BONES: No acute findings. HARDWARE: The tip of the right IJ central venous catheter projects within the SVC. OTHER: No other finding. IMPRESSION: Unchanged patchy opacities in the inferior right hemithorax. TECHNICAL DOCUMENTATION: JOB ID: [id number] 2010 [employer]- All Rights Reserved Reading location - IP/workstation name: [email or web address]
--- NOTE | 2019-08-09 10:10 | ST Inp Modified Barium Swallow ---
Medical Diagnosis - Medical Diagnoses Medical Diagnosis Description & ICD-10 Code(s): aspiration pneumonia - ICD-10 Tx Diagnosis Coding (1) Dysphagia ICD-10 Code(s): R13.10 - DYSPHAGIA, UNSPECIFIED ST Inpatient MBS - General Date: 08/09/19 Date of Onset: 08/07/19 - admission date - History -: Medical - per EMR: patient admitted 08/06 after possible seizure with change in mental status. [facility], concern for possible seizure with aspiration. Patient was found to have vomit on him. Chest x-ray revealed right basal infiltrate. Prior medical history includes cerebral palsy with spastic quadriplegia. seizure disorder, recurrent episodes of aspiration, GERD, hiatal hernia. Of note, patient had a MBSS completed on 11/02/18. At that time, puree solids with nectar thick liquids were recommended due to weak and discoordinated swallowing. Medications: Medications Reviewed Allergies: Refer to medical record - Subjective Current Nutritional Means: PO Current PO Diet: Pureed, Thickened liquids - honey Current Symptoms: Hx of asp. pneumonia Pain: no signs/symptoms of pain - Objective Assessment: Upright, Left Lateral - some difficulty with positioning due to extraneous movements, as well as upper extremity spasticity and contractures. - Food Trials Food Trials Used: Thin liquids, Honey-thickened liquids, [place] thick liquids, Pureed The Patient: fed by ST - Assessment Labial Function: Impaired - significant anterior loss of liquids, especially for thin and nectar liquids. Lingual Function: Impaired - tongue thrust patterns seen with presented with cup frequently. overall poor oral control of the bolus - Pharyngeal Stage Pahryngeal Stage Comments: Patient demonstrates delayed pharyngeal swallow reflex, with bolus frequently fully in pyriform prior to swallow initiation. Very poor epiglottic inversion seen consistently, resulting in significant valleculae residue with all textures. This also resulted in reduced airway protection during the swallow. Patient also demonstrated moderate residue in the pyriform sinus with very inconsistent second swallow. Subsequent swallows partially clear residue, however, full clearance was not seen. Poor pharyngeal constriction seen, as well as poor base of tongue retraction and reduced laryngeal elevation. - Impression/Summary Laryngeal Penetration: Yes - penetration seen with nectar thick liquids and thin liquids. No overt aspiration seen on study, however, with thin liquids trials, patient consistently demonstrated cough after the swallow. Some limitations in this study present due to poor positioning of patient due to contractures, and extraneous head movements of the patient during and after the swallow. Patient Presents With: Oral-Pharyngeal dysph., Severe Risk of Aspiration: Moderate Risk Due To: Patient is at moderate to high risk of aspiration due to significant swallow delay, as well as poor oral and pharyngeal control of the bolus. Patient is at risk of aspiration after the swallow due to significant residue in the pharynx after the swallow with poor clearance. - Recommendations Solid Diet Recommendations: Pureed Liquid Diet Recommendations: Honey-Thick - although aspiration was not seen on nectar thick liquids, the patient expelled the majority of this from his mouth consistently, putting him at risk of poor intake of nectar liquids. Strict Aspitarion Precautions: Yes Dysphagia Therapy with SCENE SHIFTER: No - Patient not appropriate for skilled intervention due to difficulty following directions and extraneous movements. Recommended Techniques: Fully Upright During Meal, Small Bites and Sips, Alternate Bites/Sips Supervision: requires assistance Other Recommendations: Recommend high level of oral hygeine to reduce the risk of aspiration pneumonia from oral bacteria. Given severity of dysphagia, primary physician and caregivers may wish to consider alternative means of nutrition/hydration. - Time Total Time: 30 Total Timed Minutes: 30
--- NOTE | 2019-08-09 10:12 | RADIOLOGY REPORT (SQ) ---
EXAM DESCRIPTION: COOKIE SWALLOW IMAGES COMPLETED DATE/TIME: 08/09/2019 9:13 am REASON FOR STUDY: aspiration pna cerebral palsy COMPARISON: 11/02/2018 cookie swallow TECHNIQUE: Videofluoroscopic swallowing examination was performed in conjunction with speech patholo gy. Videofluoroscopic imaging was obtained and reviewed and these are the findings: RADIATION DOSE: 3 minutes 55 seconds of fluoroscopy was used. 1 images saved to PACS. LIMITATIONS: Difficult positioning due to arm contractures FINDINGS: The patient was brought into the fluoro room and placed upright on a modified barium swall ow chair. The patient was then given multiple consistencies mixed with barium to swallow under live fluoroscopic video guidance. According to the Speech Pathologist there was penetration and possible aspiration of thin liquids although not clearly identified due to to patient positioning. Weak swallo w with post swallow residual contrast within the vallecular and piriform sinuses. IMPRESSION: SUSPECTED PENETRATION AND ASPIRATION OF THIN LIQUIDS. PLEASE SEE SPEECH PATHOLOGIST REPO RT FOR OTHER FINDINGS AND RECOMMENDATIONS. COMMENT: Quality ID [id number]: Final reports for procedures using fluoroscopy that document radiation exp osure indices, or exposure time and number of fluorographic images (if radiation exposure indices are not available) TECHNICAL DOCUMENTATION: JOB ID: [id number] 2010 [employer]- All Rights Reserved Reading location - IP/workstation name: [email or web address] [id number]
--- NOTE | 2019-08-09 10:35 | EKG REPORT ---
SEVERITY:- ABNORMAL ECG - SINUS RHYTHM RIGHT BUNDLE BRANCH BLOCK LOW VOLTAGE QRS : Confirmed on behalf of: Kimberly Erazo 09-Aug-2019 10:34:14
[2019-08-09] MEDS: SENNOSIDES/DOCUSATE 8.6-50 MG 1 EACH TABLET PO SCH (23:05)
[2019-08-09] MEDS: ATORVASTATIN CALCIUM 20 MG TABLET PO SCH (23:06)
[2019-08-09] MEDS: PHENOBARBITAL 64.8 MG TABLET PO SCH (23:06)
[2019-08-10] MEDS: CEFEPIME 1 GM/D5W RTU 1 GM/50 ML RTUPB IV SCH ×2 (05:23→17:27)
[2019-08-10] MEDS: BACLOFEN 20 MG TABLET PO SCH ×3 (05:23→17:24)
[2019-08-10 05:49] LABS: ABSOLUTE BASOPHILS # (AUTO) 0.1 10^3/uL (0.0-0.2); ABSOLUTE EOSINOPHILS # (AUTO) 0.4 10^3/uL (0.0-0.6); ABSOLUTE LYMPHOCYTES (AUTO) 1.7 10^3/uL (0.5-4.7); ABSOLUTE MONOCYTES (AUTO) 0.9 10^3/uL (0.1-1.4); ABSOLUTE NEUT (AUTO) 5.2 10^3/uL (1.7-8.2); BASOPHILS % (AUTO) 0.6 % (0-2); EOSINOPHILS % (AUTO) 4.4 % (0-6); HEMATOCRIT 42.2 % (37.9-51.0); HEMOGLOBIN 14.8 g/dL (13.5-17.0); LYMPHOCYTES % (AUTO) 20.8 % (13-45); MEAN CORPUSCULAR HEMOGLOBIN 30.4 pg (27.0-33.4); MEAN CORPUSCULAR VOLUME 87 fl (80-97); PLATELET COUNT 210 10^3/uL (150-450); RED BLOOD COUNT 4.86 10^6/uL (4.35-5.55); RED CELL DISTRIBUTION WIDTH 13.1 % (11.5-14.0); SEGMENTED NEUTROPHILS % (AUTO) 63.2 % (42-78); TOTAL CELLS COUNTED % (AUTO) 100 %; WHITE BLOOD COUNT 8.2 10^3/uL (4.0-10.5)
[2019-08-10 07:05] LABS: ANION GAP 6 (5-19); BLOOD UREA NITROGEN 17 mg/dL (7-20); CALCIUM 9.4 mg/dL (8.4-10.2); CARBON DIOXIDE 33 mmol/L (22-30); CHLORIDE 106 mmol/L (98-107); GLUCOSE 121 mg/dL (75-110); POTASSIUM 3.9 mmol/L (3.6-5.0)
[2019-08-10] MEDS: ENOXAPARIN SODIUM INJ 40 MG/0.4 ML DISP.SYRIN SUBCUT SCH (09:25)
[2019-08-10] MEDS: CHOLECALCIFEROL (D3) 1,000 UNIT (25 MCG) TABLET PO SCH (09:25)
[2019-08-10] MEDS: PANTOPRAZOLE SODIUM 40 MG TABLET.DR PO SCH (09:25)
--- NOTE | 2019-08-10 09:35 | PDOC PROGRESS REPORT ---
Subjective Progress Note for:: 08/10/19 Subjective:: Patient is currently doing fair Patient have a modified barium swallow and speech therapy recommendation is in the chart No fever no chills According to nursing staff no seizures activities Reason For Visit: SPASTIC QUADRIPLEGIC CEREBRAL PALSY,SEIZURE Physical Exam Vital Signs: Temp Pulse Resp BP Pulse Ox 98.7 F 126 H 18 117/77 94 08/09/19 23:24 08/10/19 06:43 08/09/19 23:24 08/09/19 23:24 08/10/19 01:05 Intake & Output 08/09/19 08/10/19 08/11/19 06:59 06:59 06:59 Intake Total 200 200 Output Total 550 210 Balance -350 -10 Weight 53.4 kg 54.1 kg General appearance: PRESENT: no acute distress, well-developed, well-nourished Head exam: PRESENT: atraumatic, normocephalic Eye exam: PRESENT: conjunctiva pink, EOMI, PERRLA. ABSENT: scleral icterus Ear exam: PRESENT: normal external ear exam Mouth exam: PRESENT: moist, tongue midline Neck exam: PRESENT: full ROM. ABSENT: carotid bruit, JVD, lymphadenopathy, thyromegaly Respiratory exam: PRESENT: clear to auscultation carmen Cardiovascular exam: PRESENT: RRR. ABSENT: diastolic murmur, rubs, systolic murmur Pulses: PRESENT: normal dorsalis pedis pul, +2 pedal pulses bilateral Vascular exam: PRESENT: normal capillary refill GI/Abdominal exam: PRESENT: normal bowel sounds, soft. ABSENT: distended, guarding, mass, organolmegaly, rebound, tenderness Rectal exam: PRESENT: deferred Neurological exam: PRESENT: alert, awake. ABSENT: motor sensory deficit Psychiatric exam: PRESENT: appropriate affect, normal mood. ABSENT: homicidal ideation, suicidal ideation Skin exam: PRESENT: dry, intact, warm. ABSENT: cyanosis, rash Results Laboratory Results: 08/10/19 05:13 08/10/19 06:18 08/10/19 08/10/19 08/10/19 05:13 05:13 06:18 WBC 8.2 RBC 4.86 Hgb 14.8 Hct 42.2 MCV 87 MCH 30.4 MCHC 35.0 RDW 13.1 Plt Count 210 Seg Neutrophils % 63.2 Sodium Cancelled 145.1 H Potassium Cancelled 3.9 Chloride Cancelled 106 Carbon Dioxide Cancelled 33 H Anion Gap Cancelled 6 BUN Cancelled 17 Creatinine Cancelled 0.69 Est GFR ( Amer) Cancelled > 60 Est GFR (Non-Af Amer) Cancelled Glucose Cancelled 121 H Calcium Cancelled 9.4 08/06/19 08/06/19 22:12 22:12 Creatine Kinase 95 Troponin I 0.021 Impressions: KUB X-Ray 08/06/19 20:45 IMPRESSION: No acute intra-abdominal process is identified. Chest X-Ray 08/09/19 00:00 IMPRESSION: Unchanged patchy opacities in the inferior right hemithorax. Modified Barium Swallow 08/09/19 00:00 IMPRESSION: SUSPECTED PENETRATION AND ASPIRATION OF THIN LIQUIDS. PLEASE SEE SPEECH PATHOLOGIST REPORT FOR OTHER FINDINGS AND RECOMMENDATIONS. Assessment & Plan - Diagnosis (1) Aspiration pneumonia Qualifiers: Aspiration pneumonia type: unspecified Laterality: right Lung location: lower lobe of lung Qualified Code(s): J69.0 - Pneumonitis due to inhalation of food and vomit Is this a current diagnosis for this admission?: Yes Plan: Will try to switch to the p.o. Bactrim and patients remain afebrile probably discharged with the p.o. Bactrim (2) Cerebral palsy Qualifiers: Cerebral palsy type: spastic quadriplegic Qualified Code(s): G80.0 - Spastic quadriplegic cerebral palsy Is this a current diagnosis for this admission?: Yes (3) Hypoxia Is this a current diagnosis for this admission?: Yes Plan: Try to wean off from the oxygen's today (4) Seizure disorder Is this a current diagnosis for this admission?: Yes (5) Spastic quadriplegic cerebral palsy Is this a current diagnosis for this admission?: Yes - Time Time Spent with patient: 15-24 minutes Level of Care: IMCU Medications reviewed and adjusted accordingly: Yes Anticipated discharge: Other Within: Other - Plan Summary Plan Summary: Continues to current medications
[2019-08-10] MEDS ORDERED: LEVOFLOXACIN 750 MG TABLET PO SCH (10:00)
[2019-08-10] MEDS: SULFAMETHOXAZOLE/TRIMETHOPRIM 800-160 MG TABLET PO SCH ×2 (10:01→17:24)
[2019-08-10] MEDS: ATORVASTATIN CALCIUM 20 MG TABLET PO SCH (22:13)
[2019-08-10] MEDS: PHENOBARBITAL 64.8 MG TABLET PO SCH (22:13)
[2019-08-10] MEDS: SENNOSIDES/DOCUSATE 8.6-50 MG 1 EACH TABLET PO SCH (22:13)
[2019-08-11] MEDS: CEFEPIME 1 GM/D5W RTU 1 GM/50 ML RTUPB IV SCH ×2 (05:38→17:50)
[2019-08-11] MEDS: BACLOFEN 20 MG TABLET PO SCH ×4 (05:38→17:50)
[2019-08-11 06:29] LABS: ANION GAP 7 (5-19); BLOOD UREA NITROGEN 18 mg/dL (7-20); CALCIUM 9.3 mg/dL (8.4-10.2); CARBON DIOXIDE 34 mmol/L (22-30); CHLORIDE 105 mmol/L (98-107); GLUCOSE 102 mg/dL (75-110); POTASSIUM 3.9 mmol/L (3.6-5.0)
--- NOTE | 2019-08-11 08:33 | PDOC PROGRESS REPORT ---
Subjective Progress Note for:: 08/11/19 Subjective:: Patient is currently doing fair According to the nursing staff no seizures activities no fever no chills Is currently on a 2 L nasal cannula try to wean off today Reason For Visit: SPASTIC QUADRIPLEGIC CEREBRAL PALSY,SEIZURE Physical Exam Vital Signs: Temp Pulse Resp BP Pulse Ox 98.3 F 92 16 106/74 96 08/11/19 04:32 08/11/19 07:00 08/11/19 04:32 08/11/19 04:32 08/11/19 04:32 Intake & Output 08/10/19 08/11/19 08/12/19 06:59 06:59 06:59 Intake Total 200 218 Output Total 210 200 Balance -10 18 Weight 54.1 kg 53.6 kg General appearance: PRESENT: no acute distress, well-developed, well-nourished Head exam: PRESENT: atraumatic, normocephalic Eye exam: PRESENT: conjunctiva pink, EOMI, PERRLA. ABSENT: scleral icterus Ear exam: PRESENT: normal external ear exam Mouth exam: PRESENT: moist, tongue midline Neck exam: PRESENT: full ROM. ABSENT: carotid bruit, JVD, lymphadenopathy, thyromegaly Respiratory exam: PRESENT: decreased breath sounds Cardiovascular exam: PRESENT: RRR. ABSENT: diastolic murmur, rubs, systolic mur mur Pulses: PRESENT: normal dorsalis pedis pul, +2 pedal pulses bilateral Vascular exam: PRESENT: normal capillary refill GI/Abdominal exam: PRESENT: normal bowel sounds, soft. ABSENT: distended, guarding, mass, organolmegaly, rebound, tenderness Rectal exam: PRESENT: deferred Neurological exam: PRESENT: alert, awake. ABSENT: motor sensory deficit Psychiatric exam: PRESENT: appropriate affect, normal mood. ABSENT: homicidal ideation, suicidal ideation Skin exam: PRESENT: dry, intact, warm. ABSENT: cyanosis, rash Results Laboratory Results: 08/10/19 05:13 08/11/19 05:45 08/11/19 05:45 Sodium 146.0 H Potassium 3.9 Chloride 105 Carbon Dioxide 34 H Anion Gap 7 BUN 18 Creatinine 0.73 Est GFR ( Amer) > 60 Glucose 102 Calcium 9.3 08/06/19 08/06/19 22:12 22:12 Creatine Kinase 95 Troponin I 0.021 Impressions: KUB X-Ray 08/06/19 20:45 IMPRESSION: No acute intra-abdominal process is identified. Chest X-Ray 08/09/19 00:00 IMPRESSION: Unchanged patchy opacities in the inferior right hemithorax. Modified Barium Swallow 08/09/19 00:00 IMPRESSION: SUSPECTED PENETRATION AND ASPIRATION OF THIN LIQUIDS. PLEASE SEE SPEECH PATHOLOGIST REPORT FOR OTHER FINDINGS AND RECOMMENDATIONS. Assessment & Plan - Diagnosis (1) Aspiration pneumonia Qualifiers: Aspiration pneumonia type: unspecified Laterality: right Lung location: lower lobe of lung Qualified Code(s): J69.0 - Pneumonitis due to inhalation of food and vomit Is this a current diagnosis for this admission?: Yes (2) Cerebral palsy Qualifiers: Cerebral palsy type: spastic quadriplegic Qualified Code(s): G80.0 - Spastic quadriplegic cerebral palsy Is this a current diagnosis for this admission?: Yes (3) Hypoxia Is this a current diagnosis for this admission?: Yes (4) Seizure disorder Is this a current diagnosis for this admission?: Yes (5) Spastic quadriplegic cerebral palsy Is this a current diagnosis for this admission?: Yes - Time Time Spent with patient: 15-24 minutes Level of Care: IMCU Medications reviewed and adjusted accordingly: Yes Anticipated discharge: Other Within: Other - Plan Summary Plan Summary: Continues to current medications try to wean off from the oxygen's
[2019-08-11] MEDS: PANTOPRAZOLE SODIUM 40 MG TABLET.DR PO SCH (10:34)
[2019-08-11] MEDS: SULFAMETHOXAZOLE/TRIMETHOPRIM 800-160 MG TABLET PO SCH ×2 (10:34→17:50)
[2019-08-11] MEDS: CHOLECALCIFEROL (D3) 1,000 UNIT (25 MCG) TABLET PO SCH (10:34)
[2019-08-11] MEDS: ENOXAPARIN SODIUM INJ 40 MG/0.4 ML DISP.SYRIN SUBCUT SCH (10:35)
[2019-08-11] MEDS: ATORVASTATIN CALCIUM 20 MG TABLET PO SCH (21:28)
[2019-08-11] MEDS: PHENOBARBITAL 64.8 MG TABLET PO SCH (21:28)
[2019-08-11] MEDS: SENNOSIDES/DOCUSATE 8.6-50 MG 1 EACH TABLET PO SCH (21:28)
[2019-08-12] MEDS: BACLOFEN 20 MG TABLET PO SCH ×4 (00:59→17:43)
[2019-08-12] MEDS: CEFEPIME 1 GM/D5W RTU 1 GM/50 ML RTUPB IV SCH ×2 (05:36→17:43)
[2019-08-12 06:29] LABS: ANION GAP 6 (5-19); BLOOD UREA NITROGEN 20 mg/dL (7-20); CARBON DIOXIDE 32 mmol/L (22-30); CHLORIDE 106 mmol/L (98-107); GLUCOSE 106 mg/dL (75-110); POTASSIUM 4.2 mmol/L (3.6-5.0)
--- NOTE | 2019-08-12 08:56 | PDOC PROGRESS REPORT ---
Subjective Progress Note for:: 08/12/19 Subjective:: Patient is currently doing fair Still in need of 1 or 2 L nasal cannula oxygen's Patient COVID test negative Reason For Visit: POSSIBLE SEIZURES ASPIRATION PNEUMONIA Physical Exam Vital Signs: Temp Pulse Resp BP Pulse Ox 98.0 F 89 17 105/69 91 L 08/12/19 05:32 08/12/19 07:00 08/12/19 05:32 08/12/19 05:32 08/12/19 05:32 Intake & Output 08/11/19 08/12/19 08/13/19 06:59 06:59 06:59 Intake Total 218 1692 Output Total 200 Balance 18 1692 Weight 53.6 kg 57.5 kg General appearance: PRESENT: no acute distress, well-developed, well-nourished Head exam: PRESENT: atraumatic, normocephalic Eye exam: PRESENT: conjunctiva pink, EOMI, PERRLA. ABSENT: scleral icterus Ear exam: PRESENT: normal external ear exam Mouth exam: PRESENT: moist, tongue midline Neck exam: PRESENT: full ROM. ABSENT: carotid bruit, JVD, lymphadenopathy, thyromegaly Respiratory exam: PRESENT: clear to auscultation carmen Cardiovascular exam: PRESENT: RRR. ABSENT: diastolic murmur, rubs, systolic murmur Vascular exam: PRESENT: normal capillary refill GI/Abdominal exam: PRESENT: normal bowel sounds, soft. ABSENT: distended, guarding, mass, organolmegaly, rebound, tenderness Rectal exam: PRESENT: deferred Neurological exam: PRESENT: alert, altered, awake, oriented to person. ABSENT: motor sensory deficit Psychiatric exam: PRESENT: appropriate affect, normal mood. ABSENT: homicidal ideation, suicidal ideation Skin exam: PRESENT: dry, intact, warm. ABSENT: cyanosis, rash Results Laboratory Results: 08/10/19 05:13 08/12/19 05:50 08/12/19 05:50 Sodium 144.1 Potassium 4.2 Chloride 106 Carbon Dioxide 32 H Anion Gap 6 BUN 20 Creatinine 0.75 Est GFR ( Amer) > 60 Glucose 106 Calcium 9.0 08/06/19 22:43 Blood Blood Culture - Final NO GROWTH IN 5 DAYS 08/06/19 22:12 Blood Blood Culture - Final NO GROWTH IN 5 DAYS 04/24/20 04/24/20 22:12 22:12 Creatine Kinase 95 Troponin I 0.021 Impressions: KUB X-Ray 08/06/19 20:45 IMPRESSION: No acute intra-abdominal process is identified. Chest X-Ray 08/09/19 00:00 IMPRESSION: Unchanged patchy opacities in the inferior right hemithorax. Modified Barium Swallow 08/09/19 00:00 IMPRESSION: SUSPECTED PENETRATION AND ASPIRATION OF THIN LIQUIDS. PLEASE SEE SPEECH PATHOLOGIST REPORT FOR OTHER FINDINGS AND RECOMMENDATIONS. Assessment & Plan - Diagnosis (1) Aspiration pneumonia Qualifiers: Aspiration pneumonia type: unspecified Laterality: right Lung location: lower lobe of lung Qualified Code(s): J69.0 - Pneumonitis due to inhalation of food and vomit Is this a current diagnosis for this admission?: Yes (2) Cerebral palsy Qualifiers: Cerebral palsy type: spastic quadriplegic Qualified Code(s): G80.0 - Spastic quadriplegic cerebral palsy Is this a current diagnosis for this admission?: Yes (3) Hypoxia Is this a current diagnosis for this admission?: Yes (4) Seizure disorder Is this a current diagnosis for this admission?: Yes (5) Spastic quadriplegic cerebral palsy Is this a current diagnosis for this admission?: Yes - Time Time Spent with patient: 15-24 minutes Level of Care: IMCU Medications reviewed and adjusted accordingly: Yes Anticipated discharge: Other Within: Other - Plan Summary Plan Summary: Continues to current medications try to wean off from the oxygen's
[2019-08-12] MEDS: ENOXAPARIN SODIUM INJ 40 MG/0.4 ML DISP.SYRIN SUBCUT SCH (11:02)
[2019-08-12] MEDS: PANTOPRAZOLE SODIUM 40 MG TABLET.DR PO SCH (11:02)
[2019-08-12] MEDS: CHOLECALCIFEROL (D3) 1,000 UNIT (25 MCG) TABLET PO SCH (11:02)
[2019-08-12] MEDS: SULFAMETHOXAZOLE/TRIMETHOPRIM 800-160 MG TABLET PO SCH ×2 (11:02→17:43)
[2019-08-12] MEDS: PHENOBARBITAL 64.8 MG TABLET PO SCH (22:33)
[2019-08-12] MEDS: SENNOSIDES/DOCUSATE 8.6-50 MG 1 EACH TABLET PO SCH (22:33)
[2019-08-12] MEDS: ATORVASTATIN CALCIUM 20 MG TABLET PO SCH (22:33)
[2019-08-13] MEDS: CEFEPIME 1 GM/D5W RTU 1 GM/50 ML RTUPB IV SCH (05:48)
[2019-08-13] MEDS: BACLOFEN 20 MG TABLET PO SCH ×2 (05:48)
[2019-08-13 08:14] VITALS: BP 110/70
--- NOTE | 2019-08-13 08:41 | PDOC DISCHARGE SUMMARY ---
Impression - Admit/DC Date/PCP Admission Date/Primary Care Provider: 08/07/19 00:46 COLLEEN HICKS MD Discharge Date: 08/13/19 - Discharge Diagnosis (1) Aspiration pneumonia Is this a current diagnosis for this admission?: Yes (2) Cerebral palsy Is this a current diagnosis for this admission?: Yes (3) Hypoxia Is this a current diagnosis for this admission?: Yes (4) Seizure disorder Is this a current diagnosis for this admission?: Yes (5) Spastic quadriplegic cerebral palsy Is this a current diagnosis for this admission?: Yes - Additional Information Discharge Diet: Other (Comments) Discharge Activity: Activity As Tolerated Referrals: COLLEEN HICKS MD [Primary Care Provider] - Follow up as needed Prescriptions: Sulfamethoxazole/Trimethoprim [Septra-Ds 800-160 mg Tablet] 1 tab PO BID #14 tablet Home Medications: Baclofen [Baclofen 20 mg Tablet] 20 mg PO Q6 10/31/18 Cholecalciferol (Vitamin D3) [Vitamin D3 1000 Unit Tablet] 1,000 unit PO DAILY 10/31/18 Clindamycin Phos/Benzoyl Perox [Benzaclin Gel 50G Pump] 50 pump TP BID 10/31/18 Diazepam [Diastat Acudial 10 mg/2 ml Rectal Gel] 10 mg ND Q6HP PRN 10/31/18 Omeprazole Magnesium [Prilosec Otc] 20 mg PO BID 10/31/18 Phenobarbital [Phenobarbital 64.8 mg Tablet] 128 mg PO QHS 10/31/18 Promethazine HCl [Phenergan 25 mg Supp.rect] 25 mg ND Q6HP PRN 10/31/18 Sennosides [Senna] 17.2 mg PO QHS 10/31/18 Ipratropium/Albuterol Sulfate [Duoneb 3 ml Ampul] 3 ml NEB RTQ8HP PRN #120 vial.neb 11/04/18 Atorvastatin Calcium [Lipitor 20 mg Tablet] 20 mg PO QHS 08/07/19 Sulfamethoxazole/Trimethoprim [Septra-Ds 800-160 mg Tablet] 1 tab PO BID #14 tablet 08/13/19 History of Present Illiness History of Present Illness: MALIK SALDANA is a 34 year old male This is a 34-year-old male's with the cerebral palsy mental retardation's admitting in the hospital for the aspiration pneumonia Hospital Course Hospital Course: This is a 34-year-old male's with a history of cerebral palsy mental retardation's admitting in the hospital for the aspiration pneumonia patient is started on IV antibiotic patient is responds very well switch to the p.o. Bactrim's patient is remained afebrile remain without oxygen's Patient COVID test is also negative patient is otherwise remained afebrile patient have a modified barium swallow and speech therapy evaluation done recommendations in the chart discussed with the caregiver to follow the recommendations and aspirations precautions Physical Exam Vital Signs: Temp Pulse Resp BP Pulse Ox 98.0 F 96 18 110/70 92 08/13/19 07:44 08/13/19 07:44 08/13/19 07:44 08/13/19 07:44 08/13/19 07:44 Intake & Output 08/12/19 08/13/19 08/14/19 06:59 06:59 06:59 Intake Total 1692 1205 Balance 1692 1205 Weight 57.5 kg 53.9 kg General appearance: PRESENT: no acute distress, well-developed, well-nourished Head exam: PRESENT: atraumatic, normocephalic Eye exam: PRESENT: conjunctiva pink, EOMI, PERRLA. ABSENT: scleral icterus Ear exam: PRESENT: normal external ear exam Mouth exam: PRESENT: moist, tongue midline Neck exam: ABSENT: carotid bruit, JVD, lymphadenopathy, thyromegaly Respiratory exam: PRESENT: clear to auscultation carmen. ABSENT: rales, rhonchi, wheezes Cardiovascular exam: PRESENT: RRR. ABSENT: diastolic murmur, rubs, systolic murmur Pulses: PRESENT: normal dorsalis pedis pul Vascular exam: PRESENT: normal capillary refill GI/Abdominal exam: PRESENT: normal bowel sounds, soft. ABSENT: distended, guarding, mass, organolmegaly, rebound, tenderness Rectal exam: PRESENT: deferred Extremities exam: PRESENT: full ROM. ABSENT: calf tenderness, clubbing, pedal edema Neurological exam: PRESENT: alert, awake. ABSENT: motor sensory deficit Psychiatric exam: PRESENT: appropriate affect, normal mood. ABSENT: homicidal ideation, suicidal ideation Skin exam: PRESENT: dry, intact, warm. ABSENT: cyanosis, rash Results Laboratory Results: WBC 8.2 10^3/uL (4.0-10.5) 08/10/19 05:13 RBC 4.86 10^6/uL (4.35-5.55) 08/10/19 05:13 Hgb 14.8 g/dL (13.5-17.0) 08/10/19 05:13 Hct 42.2 % (37.9-51.0) 08/10/19 05:13 MCV 87 fl (80-97) 08/10/19 05:13 MCH 30.4 pg (27.0-33.4) 08/10/19 05:13 MCHC 35.0 g/dL (32.0-36.0) 08/10/19 05:13 RDW 13.1 % (11.5-14.0) 08/10/19 05:13 Plt Count 210 10^3/uL (150-450) 08/10/19 05:13 Lymph % (Auto) 20.8 % (13-45) 08/10/19 05:13 [place] % (Auto) 11.0 % (3-13) 08/10/19 05:13 Eos % (Auto) 4.4 % (0-6) 08/10/19 05:13 Baso % (Auto) 0.6 % (0-2) 08/10/19 05:13 Absolute Neuts (auto) 5.2 10^3/uL (1.7-8.2) 08/10/19 05:13 Absolute Lymphs (auto) 1.7 10^3/uL (0.5-4.7) 08/10/19 05:13 Absolute Monos (auto) 0.9 10^3/uL (0.1-1.4) 08/10/19 05:13 Absolute Eos (auto) 0.4 10^3/uL (0.0-0.6) 08/10/19 05:13 Absolute Basos (auto) 0.1 10^3/uL (0.0-0.2) 08/10/19 05:13 Total Counted 100 08/06/19 22:12 Seg Neutrophils % 63.2 % (42-78) 08/10/19 05:13 Seg Neuts % (Manual) 78 % (42-78) 08/06/19 22:12 Band Neutrophils % 9 % (3-5) H 08/06/19 22:12 Lymphocytes % (Manual) 5 % (13-45) L 08/06/19 22:12 Atypical Lymphs % 3 % (0) 08/06/19 22:12 Monocytes % (Manual) 5 % (3-13) 08/06/19 22:12 Eosinophils % (Manual) 0 % (0-6) 08/06/19 22:12 Basophils % (Manual) 0 % (0-2) 08/06/19 22:12 Abs Neuts (Manual) 7.3 10^3/uL (1.7-8.2) 08/06/19 22:12 Abs Lymphs (Manual) 0.7 10^3/uL (0.5-4.7) 08/06/19 22:12 Abs Monocytes (Manual) 0.4 10^3/uL (0.1-1.4) 08/06/19 22:12 Absolute Eos (Manual) 0.0 10^3/uL (0.0-0.6) 08/06/19 22:12 Abs Basophils (Manual) 0.0 10^3/uL (0.0-0.2) 08/06/19 22:12 Platelet Comment ADEQUATE 08/06/19 22:12 Poikilocytosis SLIGHT 08/06/19 22:12 Ovalocytes SLIGHT 08/06/19 22:12 Carbonic Acid 1.20 mmol/L (1.05-1.35) 08/06/19 22:50 HCO3/H2CO3 Ratio 20:1 08/06/19 22:50 ABG pH 7.41 (7.35-7.45) 08/06/19 22:50 ABG pCO2 40.0 mmHg (35-45) 08/06/19 22:50 ABG pO2 62.1 mmHg (80-100) L 08/06/19 22:50 ABG HCO3 24.9 mmol/L (20-24) H 08/06/19 22:50 ABG Total CO2 26.1 mmol/L (23-27) 08/06/19 22:50 ABG O2 Saturation 92.1 % (94-98) L 08/06/19 22:50 ABG Base Excess 0.4 mmol/L 08/06/19 22:50 FiO2 3.5L 08/06/19 22:50 Sodium 144.1 mmol/L (137-145) 08/12/19 05:50 Potassium 4.2 mmol/L (3.6-5.0) 08/12/19 05:50 Chloride 106 mmol/L (98-107) 08/12/19 05:50 Carbon Dioxide 32 mmol/L (22-30) H 08/12/19 05:50 Anion Gap 6 (5-19) 08/12/19 05:50 BUN 20 mg/dL (7-20) 08/12/19 05:50 Creatinine 0.75 mg/dL (0.52-1.25) 08/12/19 05:50 Est GFR ( Amer) > 60 (>60) 08/12/19 05:50 Est GFR (Non-Af Amer) Cancelled 08/10/19 05:13 Est GFR (MDRD) Non-Af > 60 (>60) 08/12/19 05:50 Glucose 106 mg/dL (75-110) 08/12/19 05:50 Lactic Acid 1.4 mmol/L (0.7-2.1) 08/06/19 22:12 Calcium 9.0 mg/dL (8.4-10.2) 08/12/19 05:50 Magnesium 1.9 mg/dL (1.6-2.3) 08/06/19 22:12 Total Bilirubin 0.6 mg/dL (0.2-1.3) 08/08/19 05:10 Direct Bilirubin 0.0 mg/dL (0.0-0.4) 08/08/19 05:10 Neonat Total Bilirubin Not Reportable 08/08/19 05:10 Neonat Direct Bilirubin Not Reportable 08/08/19 05:10 Neonat Indirect Bili Not Reportable 08/08/19 05:10 AST 27 U/L (17-59) 08/08/19 05:10 ALT 17 U/L (<50) 08/08/19 05:10 Alkaline Phosphatase 75 U/L (38-126) 08/08/19 05:10 Creatine Kinase 95 U/L (55-170) 08/06/19 22:12 Troponin I 0.021 ng/mL 08/06/19 22:12 Total Protein 7.2 g/dL (6.3-8.2) 08/08/19 05:10 Albumin 4.2 g/dL (3.5-5.0) 08/08/19 05:10 EGFR Cancelled 08/10/19 05:13 Urine Color YELLOW 08/06/19 20:30 Urine Appearance CLEAR 08/06/19 20:30 Urine pH 6.0 (5.0-9.0) 08/06/19 20:30 Ur Specific [place] 1.017 08/06/19 20:30 Urine Protein NEGATIVE mg/dL (NEGATIVE) 08/06/19 20:30 Urine Glucose (UA) 50 mg/dL (NEGATIVE) H 08/06/19 20:30 Urine Ketones 20 mg/dL (NEGATIVE) H 08/06/19 20:30 Urine Blood NEGATIVE (NEGATIVE) 08/06/19 20:30 Urine Nitrite NEGATIVE (NEGATIVE) 08/06/19 20:30 Urine Bilirubin NEGATIVE (NEGATIVE) 08/06/19 20:30 Urine Urobilinogen NEGATIVE mg/dL (<2.0) 08/06/19 20:30 Ur Leukocyte Esterase NEGATIVE (NEGATIVE) 08/06/19 20:30 Urine WBC (Auto) 2 /HPF 08/06/19 20:30 Urine RBC (Auto) 0 /HPF 08/06/19 20:30 Urine Mucus (Auto) OCC /LPF 08/06/19 20:30 Urine Ascorbic Acid NEGATIVE (NEGATIVE) 08/06/19 20:30 COVID-19 Source Cancelled 08/11/19 16:25 COVID-19 (ARASELI) Cancelled 08/11/19 16:25 SARS-CoV-2 (PCR) NEGATIVE (NEGATIVE) 08/11/19 16:25 08/06/19 22:12 Troponin I 0.021 Impressions: Chest X-Ray 08/06/19 00:00 IMPRESSION: Right base infiltrate. Chest X-Ray 08/06/19 00:00 IMPRESSION: Interval placement of right IJ approach central venous catheter with its tip located in the upper SVC. Patchy right basilar airspace disease, slightly increased from the prior. Consider atelectasis or pneumonia to include aspiration. copyright 2011 [employer]- All Rights Reserved KUB X-Ray 08/06/19 20:45 IMPRESSION: No acute intra-abdominal process is identified. Chest X-Ray 08/09/19 00:00 IMPRESSION: Unchanged patchy opacities in the inferior right hemithorax. Modified Barium Swallow 08/09/19 00:00 IMPRESSION: SUSPECTED PENETRATION AND ASPIRATION OF THIN LIQUIDS. PLEASE SEE SPEECH PATHOLOGIST REPORT FOR OTHER FINDINGS AND RECOMMENDATIONS. Plan Time Spent: Greater than 30 Minutes - Continues the aspirations precautions follow the speech therapy's recommendations Stroke Is this a Stroke Patient?: No Acute Heart Failure - Is this a Heart Failure Patient?: No
[2019-08-13] MEDS: SULFAMETHOXAZOLE/TRIMETHOPRIM 800-160 MG TABLET PO SCH (10:32)
[2019-08-13] MEDS: PANTOPRAZOLE SODIUM 40 MG TABLET.DR PO SCH (10:32)
[2019-08-13] MEDS: CHOLECALCIFEROL (D3) 1,000 UNIT (25 MCG) TABLET PO SCH (10:32)
[2019-08-13] MEDS: ENOXAPARIN SODIUM INJ 40 MG/0.4 ML DISP.SYRIN SUBCUT SCH (10:33)
== END 2019-08-13 12:12 | disposition home or self-care (01) | DRG 177 ==
LOC: ER 17:11 → UNDOADMIN 08-07 00:46 → EH 08-07 00:46 → 3W 08-07 02:41
PROVIDERS: ADMIT Family Medicine; ATTEND Family Medicine
PROC: 02HV33Z Insertion of Infusion Device into Superior Vena Cava, Percutaneous Approach (ICD-10-PCS; principal; 2019-08-06)
DX: J69.0 Pneumonitis due to inhalation of food and vomit (principal); G80.0 Spastic quadriplegic cerebral palsy; F73 Profound intellectual disabilities; R09.02 Hypoxemia; G40.909 Epilepsy, unspecified, not intractable, without status epilepticus; E78.5 Hyperlipidemia, unspecified; K21.9 Gastro-esophageal reflux disease without esophagitis; F41.9 Anxiety disorder, unspecified; H54.8 Legal blindness, as defined in USA; E78.00 Pure hypercholesterolemia, unspecified; Q68.8 Other specified congenital musculoskeletal deformities; Z79.899 Other long term (current) drug therapy; Z88.0 Allergy status to penicillin; Z88.7 Allergy status to serum and vaccine; Z88.8 Allergy status to other drugs, medicaments and biological substances; Z11.59 Encounter for screening for other viral diseases
CPT/HCPCS: 36415; 71045; 74018; 74230; 80048; 80053; 81001; 82550; 82803; 83605; 83735; 84484; 85025; 87040; 87635; 93005; 93010; 94640; 96365; 96367; 99291; J0692; J0696; J1642; J1650; J1956; J3360; J3490; J7620

== ENCOUNTER 2019-09-08 16:45 | Inpatient (IN) | payer MEDICAID ==
[2019-09-08] MEDS ORDERED: NORMAL SALINE 1000 ML 1,000 ML IV ONE ×2 (17:38→19:49)
[2019-09-08] MEDS ORDERED: ACETAMINOPHEN 650 MG SUPP.RECT PR ONE (18:10)
[2019-09-08] MEDS ORDERED: ONDANSETRON HCL INJ/PF 4 MG/2 ML SDV IM ONE (18:11)
--- NOTE | 2019-09-08 18:11 | RADIOLOGY REPORT (SQ) ---
EXAM DESCRIPTION: CHEST SINGLE VIEW IMAGES COMPLETED DATE/TIME: 09/08/2019 5:52 pm REASON FOR STUDY: shortness of breath COMPARISON: 08/09/2019 EXAM PARAMETERS: NUMBER OF VIEWS: One view. TECHNIQUE: Single frontal radiographic view of the chest acquired. RADIATION DOSE: NA LIMITATIONS: None. FINDINGS: LUNGS AND PLEURA: Patchy opacification in the right lower lung field has resolved. No inf iltrate, effusion, or mass. MEDIASTINUM AND HILAR STRUCTURES: No masses. Contour normal. HEART AND VASCULAR STRUCTURES: Heart normal in size. Normal vasculature. BONES: No acute findings. HARDWARE: None in the chest. OTHER: No other significant finding. IMPRESSION: NO ACUTE RADIOGRAPHIC FINDING IN THE CHEST. TECHNICAL DOCUMENTATION: JOB ID: [id number] 2010 [employer]- All Rights Reserved Reading location - IP/workstation name: [email or web address]
--- NOTE | 2019-09-08 19:17 | EKG REPORT ---
SEVERITY:- ABNORMAL ECG - SINUS TACHYCARDIA PROBABLE LEFT ATRIAL ABNORMALITY RBBB NONSPECIFIC ST-T CHANGES- DIFFUSE : Confirmed by: Enrico Barnett MD 08-Sep-2019 19:16:28
[2019-09-08] MEDS ORDERED: LEVOFLOXACIN 750 MG/D5W RTU 750 MG/150 ML RTUPB IV ONE (19:39)
[2019-09-08 19:46] LABS: APPEARANCE,URINE CLEAR; BILIRUBIN,URINE NEGATIVE (NEGATIVE); COLOR,URINE YELLOW; GLUCOSE, URINE NEGATIVE (NEGATIVE); KETONES,URINE 20 mg/dL (NEGATIVE); LEUKOCYTE ESTERASE,URINE NEGATIVE (NEGATIVE); NITRITE,URINE NEGATIVE (NEGATIVE); PROTEIN,URINE NEGATIVE (NEGATIVE); UROBILINOGEN,URINE NEGATIVE mg/dL (<2.0)
[2019-09-08 19:52] LABS: HEMATOCRIT 46.7 % (37.9-51.0); HEMOGLOBIN 16.4 g/dL (13.5-17.0); MEAN CORPUSCULAR HEMOGLOBIN 30.2 pg (27.0-33.4); MEAN CORPUSCULAR HGB CONC 35.2 g/dL (32.0-36.0); MEAN CORPUSCULAR VOLUME 86 fl (80-97); PLATELET COUNT 148 10^3/uL (150-450); RED BLOOD COUNT 5.44 10^6/uL (4.35-5.55); RED CELL DISTRIBUTION WIDTH 13.8 % (11.5-14.0); VENOUS BLOOD BASE EXCESS 0.9 mmol/L; VENOUS BLOOD HCO3 25.7 mmol/L (20-32); VENOUS BLOOD PCO2 41.5 mmHg (35-63); VENOUS BLOOD PH 7.41 (7.30-7.42); WHITE BLOOD COUNT 10.9 10^3/uL (4.0-10.5)
[2019-09-08 19:55] LABS: INTERNATIONAL RATION (INR) 1.11; PROTHROMBIN TIME 14.3 SEC (11.4-15.4)
[2019-09-08 19:56] LABS: PARTIAL THROMBOPLASTIN TIME 27.1 SEC (23.5-35.8)
[2019-09-08 20:18] LABS: ABSOLUTE LYMPHOCYTES# (MANUAL) 0.5 10^3/uL (0.5-4.7); BASOPHILS % (MANUAL) 0 % (0-2); EOSINOPHILS % (MANUAL) 0 % (0-6); LYMPHOCYTES % (MANUAL) 5 % (13-45); MONOCYTES % (MANUAL) 9 % (3-13); SEGMENTED NEUTROPHILS % (MAN) 86 % (42-78); TOTAL CELLS COUNTED 100
[2019-09-08 20:19] LABS: PLATELET COMMENT ADEQUATE; RBC MORPHOLOGY COMMENT NORMO-CYTIC/CHROMIC
[2019-09-08] MEDS ORDERED: VANCOMYCIN HCL INJ 1000 MG VIAL IV ONE (20:45)
[2019-09-08] MEDS ORDERED: CEFEPIME 1 GM/D5W RTU 1 GM/50 ML RTUPB IV ONE (20:47)
--- NOTE | 2019-09-08 20:52 | RADIOLOGY REPORT (SQ) ---
EXAM DESCRIPTION: CT CHEST WITHOUT IV CONTRAST COMPLETED DATE/TME: 09/08/2019 19:37 CLINICAL HISTORY: 34 years Male eval for aspiration COMPARISON: Chest x-ray 09/08/2019. TECHNIQUE: Contiguous axial images obtained through the chest without IV contrast. Reformatted images obtained. This exam was performed according to our department optimization program which includes automated exposure control, adjustment of the mA and/or kv according to patient size and/or use of iterative reconstruction technique. FINDINGS: Study is limited as the patient's arms overlie the chest. Respiratory motion artifact also present. Aorta appears normal in caliber. No significant thoracic adenopathy. No pericardial or pleural effusion. Cholelithiasis. Small amount of patchy infiltrate in the lung bases particularly in the medial aspect of the right middle lobe. Findings are concerning for pneumonia and may reflect aspiration. Small amount of alveolar density in the left upper lobe. Scoliosis. Secretions are present in the trachea and in the left mainstem bronchus Hiatal hernia No significant hilar or mediastinal lymph nodes. IMPRESSION: There are patchy areas of airspace disease predominantly in the lower lobes and in the base of the right middle lobe which may reflect pneumonia. Aspiration is not excluded. Additional patchy areas of alveolar infiltrate are also present in the left upper lobe. Secretions are noted in the trachea and in the left mainstem bronchus.
--- NOTE | 2019-09-08 20:53 | ER Document Report ---
ED General - General Chief Complaint: Vomiting Stated Complaint: VOMITING Time Seen by Provider: 09/08/19 16:59 Primary Care Provider: COLLEEN HICKS MD [Primary Care Provider] - Follow up as needed TRAVEL OUTSIDE OF THE [place] IN LAST 30 DAYS: No - HPI Notes: Patient is a 34-year-old male who presents to the emergency department for evaluation. He has CPN extensive medical history, is unable to offer history. Evidently he had a seizure at his halfway today. He was given rectal Diastat. He had emesis, and staff was concerned he aspirated. He has done that in the past. He was brought here and was found to be tachypneic and tachycardic. He was initially seen by Dr. Castillo, care of this patient was turned over to me. At that point he did not have any blood work drawn. He had been given Tylenol for the fever he developed in the department. - Related Data Allergies/Adverse Reactions: amoxicillin trihydrate [From Augmentin] Allergy (Unknown, Verified 09/08/19 17:04) Pertussis Immune Globulin * [Pertussis Immune Globulin] Allergy (Unknown, Verified 09/08/19 17:04) Potassium Clavulanate * [From Augmentin] Allergy (Unknown, Verified 09/08/19 17:04) Home Medications: List reviewed Past Medical History - General Information source: [facility] Records, Outside Facility Records - Social History Smoking Status: Never Smoker Chew tobacco use (# tins/day): No Frequency of alcohol use: None Family History: Reviewed & Not Pertinent Patient has homicidal ideation: No - Past Medical History Cardiac Medical History: Reports: Hx Hypercholesterolemia Pulmonary Medical History: Reports: Hx Pneumonia, Hx Intubation, Hx Respiratory Failure Neurological Medical History: Reports: Hx Seizures, Other - Cerebral palsy GI Medical History: Reports: Hx Gastroesophageal Reflux Disease, Hx Hiatal Hernia Psychiatric Medical History: Denies: Hx Depression Traumatic Medical History: Denies: Hx Pneumothorax Infectious Medical History: Denies: Hx HIV Past Surgical History: Reports: Other - Multiple chest tubes for bilateral pneumothoraces at . Review of Systems - Review of Systems Constitutional: See HPI Respiratory: See HPI Neurological/Psychological: See HPI -: Yes All other systems reviewed and negative Physical Exam - Vital signs Vitals: Temp 98.6 F 09/08/19 16:55 - Notes Notes: This is a 34-year-old male. He is lying in the bed. He has severe contractures of all 4 extremities. He does not appear to be in any distress, but he has been deep suctioned by respiratory upon my arrival, and has some significant coughing following. Head is normocephalic and atraumatic, pupils are equal round, reactive to light. Oral mucosa is moist. Uvula is midline. Heart is mildly tachycardic with normal S1, S2. Lungs show diminished breath sounds, particularly at the right base. Abdomen is soft, appears nontender, with normoactive bowel sounds. Underdeveloped extremities consistent with CP. Skin is warm and dry. Course - Re-evaluation Re-evalutation: 09/08/19 20:51 Patient presents to the emergency department for evaluation. We were eventually able to obtain a peripheral IV and laboratory investigations were obtained. Chemistry was unfortunately hemolyzed, but the patient does have a very mildly elevated white count. His chest x-ray was normal, but I strongly suspect aspiration pneumonia, given his history, as well as his borderline oxygenation and continued tachycardia, as well as his fever. He was given Tylenol for this. He was given Levaquin for likely aspiration pneumonia. CT scan of the chest was ordered to see if this could be further characterized, it is pending at this time. I spoke with Dr. Hicks. He asked that Levaquin not be given as it lowers the seizure threshold, asked that the patient be given vancomycin and the other antibiotic he was given during his inpatient stay last time. The patient was in fact given Levaquin during his last day, but was also given cefepime and vancomycin. These are ordered here. His cultures are pending. Awaiting lab to redraw chemistries. Otherwise patient is now on nasal cannula oxygen and is 96%. His heart rate is 98. His respiratory rate is improved significantly. He will be admitted to [facility] pending a rapid COVID test. - Vital Signs Vital signs: Temp Pulse Resp BP Pulse Ox 101.1 F H 116 H 23 H 144/92 H 95 09/08/19 19:59 09/08/19 17:13 09/08/19 20:15 09/08/19 20:15 09/08/19 20:15 - Laboratory Result Diagrams: 09/08/19 19:31 09/08/19 19:31 Laboratory results interpreted by me: 09/08/19 09/08/19 19:11 19:31 WBC 10.9 H Plt Count 148 L Seg Neuts % (Manual) 86 H Lymphocytes % (Manual) 5 L Abs Neuts (Manual) 9.4 H Urine Ketones 20 H - Diagnostic Test Radiology reviewed: Image reviewed, Reports reviewed - EKG Interpretation by Me Additional EKG results interpreted by me: 09/08/19 20:52 Sinus tachycardia with a rate of 123's per minute. Normal axis and intervals. No acute ST changes concerning for ischemia or infarction. Discharge - Discharge Clinical Impression: Spastic quadriplegic cerebral palsy, Seizure disorder, Hypoxia Fever Qualifiers: Encounter type: initial encounter Aspiration pneumonia Qualifiers: Laterality: unspecified laterality Condition: Stable Disposition: ADMITTED INPATIENT Admitting Provider: Damon Unit Admitted: IMCU Referrals: COLLEEN HICKS MD [Primary Care Provider] - Follow up as needed
[2019-09-08] MEDS ORDERED: ACETAMINOPHEN 325 MG TABLET PO PRN (20:58)
[2019-09-08] MEDS ORDERED: IPRATROPIUM/ALBUTEROL 0.5-2.5 MG/3 ML AMPUL NEB PRN (20:58)
[2019-09-08 21:14] LABS: ALKALINE PHOSPHATASE 83 U/L (38-126); ANION GAP 9 (5-19); ASPARTATE AMINO TRANSFERASE 30 U/L (17-59); BILIRUBIN,TOTAL 0.4 mg/dL (0.2-1.3); BLOOD UREA NITROGEN 13 mg/dL (7-20); CALCIUM 8.6 mg/dL (8.4-10.2); CARBON DIOXIDE 25 mmol/L (22-30); CHLORIDE 104 mmol/L (98-107); GLUCOSE 153 mg/dL (75-110); POTASSIUM 3.5 mmol/L (3.6-5.0); TOTAL PROTEIN 7.2 g/dL (6.3-8.2)
[2019-09-08] MEDS ORDERED: VANCOMYCIN HCL 0 MG in DEXTROSE 5%-WATER 250 ML IV NR (21:15)
[2019-09-08] MEDS ORDERED: CEFEPIME 2 GM/D5W RTU 50 ML IV SCH (22:00)
[2019-09-08] MEDS: ENOXAPARIN SODIUM INJ 40 MG/0.4 ML DISP.SYRIN SUBCUT SCH (23:10)
[2019-09-08] MEDS: FAMOTIDINE INJ/PF 20 MG/2 ML SDV IV SCH (23:16)
[2019-09-09] MEDS ORDERED: LORAZEPAM INJ 2 MG/1 ML VIAL ONE (02:51)
[2019-09-09] MEDS ORDERED: LEVETIRACETAM INJ/PF 500 MG/5 ML SDV IV ONE (02:59)
[2019-09-09] MEDS ORDERED: LORAZEPAM INJ 2 MG/1 ML VIAL IV ONE (03:15)
[2019-09-09] MEDS ORDERED: LEVETIRACETAM 500 MG/NACL-ISO 500 MG/100 ML RTUPB IV ONE (03:15)
[2019-09-09 05:47] LABS: ALBUMIN 3.9 g/dL (3.5-5.0); ALKALINE PHOSPHATASE 73 U/L (38-126); ANION GAP 8 (5-19); ASPARTATE AMINO TRANSFERASE 29 U/L (17-59); BILIRUBIN,TOTAL 0.5 mg/dL (0.2-1.3); BLOOD UREA NITROGEN 12 mg/dL (7-20); CALCIUM 8.6 mg/dL (8.4-10.2); CARBON DIOXIDE 25 mmol/L (22-30); CHLORIDE 106 mmol/L (98-107); GLUCOSE 149 mg/dL (75-110); POTASSIUM 4.1 mmol/L (3.6-5.0); TOTAL PROTEIN 7.2 g/dL (6.3-8.2)
[2019-09-09] MEDS: CEFEPIME HCL 2 GM in DEXTROSE 5%-WATER 50 ML IV SCH ×2 (05:51→17:58)
[2019-09-09] MEDS: VANCOMYCIN HCL 1,000 MG in DEXTROSE 5%-WATER 250 ML IV SCH ×3 (06:29→21:45)
[2019-09-09] MEDS ORDERED: LORAZEPAM 1 MG TABLET PO PRN (08:13)
[2019-09-09] MEDS ORDERED: [UNRECOGNIZED DRUG - OTHER] TOP SCH (10:00)
[2019-09-09] MEDS ORDERED: CLINDAMYCIN TOP SCH (10:00)
[2019-09-09] MEDS ORDERED: BENZOYL PEROXIDE TOP SCH (10:00)
[2019-09-09] MEDS ORDERED: (PENDING PHARMACY ID) (Sennosides [Senna] 2 TAB) PO SCH (10:00)
--- NOTE | 2019-09-09 10:04 | PDOC H&P ---
History of Present Illness Admission Date/PCP: 09/08/19 21:11 COLLEEN HICKS MD Patient complains of: Aspiration History of Present Illness: MALIK SALDANA is a 34 year old male This is a 34-year-old male with a cerebral palsy mental retardation's recurrent aspiration pneumonia recently admitted last month brought to the emergency department because of the seizures and patients vomited and aspirated In the emergency department patients Have a fever and some mild respiratory distressed patient's white count is slightly elevated most likely from the aspirations pneumonia with a consistent with a CT of the chest and admitting in the hospital for the further evaluation and treatments Patient have a COVID test done due to the fci which is also negative And have her 1 more seizures overnight in the hospital start on a Keppra IV Patient's otherwise when I saw it is basically nonverbal but no acute distressed in the floor Continues the IV antibiotics and IV Keppra Past Medical History Cardiac Medical History: Reports: Hyperlipidema Pulmonary Medical History: Reports: Intubation, Pneumonia, Respiratory Failure Neurological Medical History: Reports: Seizures, Other - Cerebral palsy GI Medical History: Reports: Gastroesophageal Reflux Disease, Hiatal Hernia Psychiatric Medical History: Denies: Depression Traumatic Medical History: Denies: Pneumothorax Hematology: Denies: Sickle Cell Disease Infectious Medical History: Denies: HIV Past Surgical History Past Surgical History: Reports: Other - Multiple chest tubes for bilateral pneumothoraces at . Social History Information Source: Legal Guardian Smoking Status: Never Smoker Electronic Cigarette use?: No Frequency of Alcohol Use: None Hx Recreational Drug Use: No Drugs: None Hx Prescription Drug Abuse: No Family History Family History: Reviewed & Not Pertinent Parental Family History Reviewed: Yes Children Family History Reviewed: Yes Sibling(s) Family History Reviewed.: Yes Medication/Allergy Home Medications: Baclofen [Baclofen 20 mg Tablet] 20 mg PO QID 09/08/19 Cholecalciferol (Vitamin D3) [Vitamin D3 1000 Unit Tablet] 1,000 unit PO DAILY 09/08/19 Clindamycin Phos/Benzoyl Perox [Benzaclin Gel 50G Pump] 1 applic TOP BID 09/08/19 Omeprazole 20 mg PO BID 09/08/19 Phenobarbital [Phenobarbital 64.8 mg Tablet] 64.8 mg PO DAILY 09/08/19 Sennosides [Senna] 2 tab PO DAILY 09/08/19 Allergies/Adverse Reactions: amoxicillin trihydrate [From Augmentin] Allergy (Unknown, Verified 09/08/19 17:04) Pertussis Immune Globulin * [Pertussis Immune Globulin] Allergy (Unknown, Verified 09/08/19 17:04) Potassium Clavulanate * [From Augmentin] Allergy (Unknown, Verified 09/08/19 17:04) Review of Systems ROS unobtainable: Due to mental status All systems: reviewed and no additional remarkable complaints except as stated Physical Exam Vital Signs: Temp Pulse Resp BP Pulse Ox 98.5 F 67 14 108/55 L 99 09/09/19 08:05 09/09/19 08:05 09/09/19 08:05 09/09/19 08:05 09/09/19 08:05 Intake & Output 09/08/19 09/09/19 09/10/19 06:59 06:59 06:59 Intake Total 2300 Balance 2300 Weight 62.6 kg Physical Exam: Severe mental retardation General appearance: PRESENT: no acute distress Head exam: PRESENT: atraumatic, normocephalic Eye exam: PRESENT: conjunctiva pink, EOMI, PERRLA. ABSENT: scleral icterus Ear exam: PRESENT: normal external ear exam Mouth exam: PRESENT: moist, tongue midline Neck exam: PRESENT: full ROM. ABSENT: carotid bruit, JVD, lymphadenopathy, thyromegaly Respiratory exam: PRESENT: decreased breath sounds Cardiovascular exam: PRESENT: tachycardia. ABSENT: diastolic murmur, rubs, systolic murmur Vascular exam: PRESENT: normal capillary refill GI/Abdominal exam: PRESENT: normal bowel sounds, soft. ABSENT: distended, guarding, mass, organolmegaly, rebound, tenderness Rectal exam: PRESENT: deferred Neurological exam: PRESENT: alert, awake. ABSENT: motor sensory deficit Psychiatric exam: PRESENT: appropriate affect, normal mood. ABSENT: homicidal ideation, suicidal ideation Skin exam: PRESENT: dry, intact, warm. ABSENT: cyanosis, rash Results Laboratory Results: 09/08/19 19:31 09/09/19 04:43 09/08/19 09/08/19 09/08/19 19:11 19:31 19:31 WBC 10.9 H RBC 5.44 Hgb 16.4 Hct 46.7 MCV 86 MCH 30.2 MCHC 35.2 RDW 13.8 Plt Count 148 L Seg Neutrophils % Not Reportable VBG pH VBG pCO2 VBG HCO3 VBG Base Excess Sodium Cancelled Potassium Cancelled Chloride Cancelled Carbon Dioxide Cancelled Anion Gap Cancelled BUN Cancelled Creatinine Cancelled Est GFR ( Amer) Cancelled Est GFR (Non-Af Amer) Cancelled Glucose Cancelled Lactic Acid Calcium Cancelled Total Bilirubin Cancelled AST Cancelled Alkaline Phosphatase Cancelled Total Protein Cancelled Albumin Cancelled Lipase Cancelled Urine Color YELLOW Urine Appearance CLEAR Urine pH 5.0 Ur Specific [place] 1.020 Urine Protein NEGATIVE Urine Glucose (UA) NEGATIVE Urine Ketones 20 H Urine Blood NEGATIVE Urine Nitrite NEGATIVE Ur Leukocyte Esterase NEGATIVE Urine WBC (Auto) 1 Urine RBC (Auto) 1 09/08/19 09/08/19 09/08/19 19:31 19:31 20:40 WBC RBC Hgb Hct MCV MCH MCHC RDW Plt Count Seg Neutrophils % VBG pH 7.41 VBG pCO2 41.5 VBG HCO3 25.7 VBG Base Excess 0.9 Sodium 137.8 Potassium 3.5 L Chloride 104 Carbon Dioxide 25 Anion Gap 9 BUN 13 Creatinine 0.53 Est GFR ( Amer) > 60 Est GFR (Non-Af Amer) Glucose 153 H Lactic Acid 1.6 Calcium 8.6 Total Bilirubin 0.4 AST 30 Alkaline Phosphatase 83 Total Protein 7.2 Albumin 4.0 Lipase 94.0 Urine Color Urine Appearance Urine pH Ur Specific [place] Urine Protein Urine Glucose (UA) Urine Ketones Urine Blood Urine Nitrite Ur Leukocyte Esterase Urine WBC (Auto) Urine RBC (Auto) 09/09/19 04:43 WBC RBC Hgb Hct MCV MCH MCHC RDW Plt Count Seg Neutrophils % VBG pH VBG pCO2 VBG HCO3 VBG Base Excess Sodium 138.5 Potassium 4.1 Chloride 106 Carbon Dioxide 25 Anion Gap 8 BUN 12 Creatinine 0.62 Est GFR ( Amer) > 60 Est GFR (Non-Af Amer) Glucose 149 H Lactic Acid Calcium 8.6 Total Bilirubin 0.5 AST 29 Alkaline Phosphatase 73 Total Protein 7.2 Albumin 3.9 Lipase Urine Color Urine Appearance Urine pH Ur Specific [place] Urine Protein Urine Glucose (UA) Urine Ketones Urine Blood Urine Nitrite Ur Leukocyte Esterase Urine WBC (Auto) Urine RBC (Auto) 09/08/19 09/08/19 19:31 20:40 Troponin I Cancelled < 0.012 Impressions: Chest X-Ray 09/08/19 17:33 IMPRESSION: NO ACUTE RADIOGRAPHIC FINDING IN THE CHEST. Chest CT 09/08/19 19:37 IMPRESSION: There are patchy areas of airspace disease predominantly in the lower lobes and in the base of the right middle lobe which may reflect pneumonia. Aspiration is not excluded. Additional patchy areas of alveolar infiltrate are also present in the left upper lobe. Secretions are noted in the trachea and in the left mainstem bronchus. Assessment & Plan - Diagnosis (1) Aspiration pneumonia Qualifiers: Laterality: unspecified laterality Is this a current diagnosis for this admission?: Yes Plan: Will continues to IV antibiotics patients probably need a further evaluate for the j -tube placement (2) Fever Qualifiers: Encounter type: initial encounter Is this a current diagnosis for this admission?: Yes Plan: Due to the most likely aspirations pneumonia (3) Seizure disorder Is this a current diagnosis for this admission?: Yes Plan: Will continues the phenobarbital at the [facility] patient usually follow the neurology outpatients (4) Spastic quadriplegic cerebral palsy Is this a current diagnosis for this admission?: Yes - Time Time Spent: 50 to 70 Minutes Medications reviewed and adjusted accordingly: Yes Anticipated discharge: Other Within: Other - Inpatient Certification Based on my medical assessment, after consideration of the patient's comorbidities, presenting symptoms, or acuity I expect that the services needed warrant INPATIENT care.: Yes I certify that my determination is in accordance with my understanding of Medicare's requirements for reasonable and necessary INPATIENT services [42 CFR 412.3e].: Yes Medical Necessity: Significant Comorbidiites Make Outpatient Treatment Too Risky, Need Close Monitoring Due to Risk of Patient Decompensation, Need for IV Antibiotics Post Hospital Care: D/C [facility] Documentation - Plan Summary Plan Summary: Admit the patient in IMCU start on IV antibiotic continues to monitor the patient's Keep n.p.o. aspirations precautions seizures precautions
[2019-09-09] MEDS: SENNOSIDES/DOCUSATE 8.6-50 MG 1 EACH TABLET PO SCH (11:29)
[2019-09-09] MEDS: PHENOBARBITAL 64.8 MG TABLET PO SCH (11:29)
[2019-09-09] MEDS: FAMOTIDINE INJ/PF 20 MG/2 ML SDV IV SCH ×2 (11:29→21:45)
[2019-09-09] MEDS: LEVETIRACETAM 500 MG/NACL-ISO 500 MG/100 ML RTUPB IV SCH ×2 (11:30→21:45)
[2019-09-09] MEDS: NORMAL SALINE 1000 ML 1,000 ML IV PRN (11:30)
[2019-09-09] MEDS: ENOXAPARIN SODIUM INJ 40 MG/0.4 ML DISP.SYRIN SUBCUT SCH (11:34)
[2019-09-09] MEDS: BACLOFEN 20 MG TABLET PO SCH ×4 (11:34→21:36)
[2019-09-09] MEDS ORDERED: DEXTROSE 40% GEL 15 GM TUBE PO PRN ×2 (18:38)
[2019-09-09] MEDS ORDERED: DEXTROSE 50%-WATER 25 GM/50 ML DISP.SYRIN IV PRN ×2 (18:38)
[2019-09-09] MEDS ORDERED: GLUCAGON,HUMAN RECOMB 1 MG INJ SUBCUT PRN (18:38)
[2019-09-10] MEDS: VANCOMYCIN HCL 1,000 MG in DEXTROSE 5%-WATER 250 ML IV SCH ×2 (05:16→14:42)
[2019-09-10] MEDS: NORMAL SALINE 1000 ML 1,000 ML IV PRN ×2 (05:16→22:29)
[2019-09-10] MEDS: CEFEPIME HCL 2 GM in DEXTROSE 5%-WATER 50 ML IV SCH ×2 (05:16→17:31)
[2019-09-10 05:57] LABS: VANCOMYCIN,TROUGH 17.1 ug/mL (5.0-20.0)
[2019-09-10 05:58] LABS: ALBUMIN 3.8 g/dL (3.5-5.0); ALKALINE PHOSPHATASE 71 U/L (38-126); ANION GAP 9 (5-19); ASPARTATE AMINO TRANSFERASE 22 U/L (17-59); BILIRUBIN,TOTAL 0.5 mg/dL (0.2-1.3); BLOOD UREA NITROGEN 7 mg/dL (7-20); CARBON DIOXIDE 27 mmol/L (22-30); CHLORIDE 103 mmol/L (98-107); GLUCOSE 103 mg/dL (75-110); POTASSIUM 3.4 mmol/L (3.6-5.0); TOTAL PROTEIN 6.8 g/dL (6.3-8.2)
[2019-09-10] MEDS: PHENOBARBITAL 64.8 MG TABLET PO SCH (10:28)
[2019-09-10] MEDS: SENNOSIDES/DOCUSATE 8.6-50 MG 1 EACH TABLET PO SCH (10:28)
[2019-09-10] MEDS: BACLOFEN 20 MG TABLET PO SCH ×4 (10:28→22:33)
[2019-09-10] MEDS: ENOXAPARIN SODIUM INJ 40 MG/0.4 ML DISP.SYRIN SUBCUT SCH (10:29)
[2019-09-10] MEDS: FAMOTIDINE INJ/PF 20 MG/2 ML SDV IV SCH ×2 (10:29→22:19)
[2019-09-10] MEDS: LEVETIRACETAM 500 MG/NACL-ISO 500 MG/100 ML RTUPB IV SCH ×2 (10:29→21:56)
--- NOTE | 2019-09-10 13:30 | PDOC PROGRESS REPORT ---
Subjective Progress Note for:: 09/10/19 Subjective:: Patient is currently doing well Patient having no seizures activity No fever no chills We will get the speech therapy evaluations also asked the surgery for evaluation for the G-tube placement Reason For Visit: PNEUMONIA Physical Exam Vital Signs: Temp Pulse Resp BP Pulse Ox 97.9 F 90 18 124/76 96 09/10/19 11:19 09/10/19 11:32 09/10/19 11:32 09/10/19 11:19 09/10/19 11:32 Intake & Output 09/09/19 09/10/19 09/11/19 06:59 06:59 06:59 Intake Total 2300 2550 791 Output Total 1375 550 Balance 2300 1175 241 Weight 62.6 kg 60.5 kg 60.5 kg General appearance: PRESENT: no acute distress Head exam: PRESENT: atraumatic, normocephalic Eye exam: PRESENT: conjunctiva pink, EOMI, PERRLA. ABSENT: scleral icterus Ear exam: PRESENT: normal external ear exam Mouth exam: PRESENT: moist, tongue midline Neck exam: PRESENT: full ROM. ABSENT: carotid bruit, JVD, lymphadenopathy, thyromegaly Respiratory exam: PRESENT: clear to auscultation carmen Cardiovascular exam: PRESENT: RRR. ABSENT: diastolic murmur, rubs, systolic murmur Pulses: PRESENT: normal dorsalis pedis pul, +2 pedal pulses bilateral Vascular exam: PRESENT: normal capillary refill GI/Abdominal exam: PRESENT: normal bowel sounds, soft. ABSENT: distended, guarding, mass, organolmegaly, rebound, tenderness Rectal exam: PRESENT: deferred Neurological exam: PRESENT: alert, awake. ABSENT: motor sensory deficit Psychiatric exam: PRESENT: appropriate affect, normal mood. ABSENT: homicidal ideation, suicidal ideation Skin exam: PRESENT: dry, intact, warm. ABSENT: cyanosis, rash Results Laboratory Results: 09/08/19 19:31 09/10/19 05:27 09/10/19 05:27 Sodium 139.0 Potassium 3.4 L Chloride 103 Carbon Dioxide 27 Anion Gap 9 BUN 7 Creatinine 0.63 Est GFR ( Amer) > 60 Glucose 103 Calcium 9.0 Total Bilirubin 0.5 AST 22 Alkaline Phosphatase 71 Total Protein 6.8 Albumin 3.8 09/08/19 21:21 Throat Throat Culture - Final NORMAL [facility] 09/08/19 19:11 Catheterized Urine Urine Culture - Final NO GROWTH 2 DAYS 09/08/19 09/08/19 19:31 20:40 Troponin I Cancelled < 0.012 Impressions: Chest X-Ray 09/08/19 17:33 IMPRESSION: NO ACUTE RADIOGRAPHIC FINDING IN THE CHEST. Chest CT 09/08/19 19:37 IMPRESSION: There are patchy areas of airspace disease predominantly in the lower lobes and in the base of the right middle lobe which may reflect pneumonia. Aspiration is not excluded. Additional patchy areas of alveolar infiltrate are also present in the left upper lobe. Secretions are noted in the trachea and in the left mainstem bronchus. Assessment & Plan - Diagnosis (1) Aspiration pneumonia Qualifiers: Laterality: unspecified laterality Is this a current diagnosis for this admission?: Yes Plan: Continues the IV antibiotic we will repeat the chest x-ray if the patient is remained afebrile we will switch to the p.o. Bactrim (2) Fever Qualifiers: Encounter type: initial encounter Is this a current diagnosis for this admission?: Yes Plan: Currently all resolved (3) Seizure disorder Is this a current diagnosis for this admission?: Yes Plan: Continues IV Keppra (4) Spastic quadriplegic cerebral palsy Is this a current diagnosis for this admission?: Yes Plan: Will check the speech evaluations with the patients of this year have a 3 times aspirations pneumonia we will ask the surgeons to further evaluate for possible j-tube placement - Time Time Spent with patient: 15-24 minutes Level of Care: IMCU Medications reviewed and adjusted accordingly: Yes Anticipated discharge: Other Within: Other - Plan Summary Plan Summary: Continues to IV antibiotic
--- NOTE | 2019-09-10 14:48 | RADIOLOGY REPORT (SQ) ---
EXAM DESCRIPTION: CHEST SINGLE VIEW IMAGES COMPLETED DATE/TIME: 09/10/2019 2:11 pm REASON FOR STUDY: aspiration pnemonia COMPARISON: AP view of the chest from 09/08/2019. EXAM PARAMETERS: NUMBER OF VIEWS: One view. TECHNIQUE: An AP view of the chest was obtained. RADIATION DOSE: NA LIMITATIONS: None. FINDINGS: LUNGS AND PLEURA: No consolidation, pleural effusion or pneumothorax. MEDIASTINUM AND HILAR STRUCTURES: No mediastinal or hilar contour abnormality. HEART AND VASCULAR STRUCTURES: The cardiac silhouette and pulmonary vasculature are within normal gonzales its. BONES: No acute findings. HARDWARE: None in the chest. OTHER: No other finding. IMPRESSION: No acute cardiopulmonary process. TECHNICAL DOCUMENTATION: JOB ID: [id number] [employer]- All Rights Reserved Reading location - IP/workstation name: [email or web address]
[2019-09-11 06:13] LABS: ABSOLUTE EOSINOPHILS # (AUTO) 0.3 10^3/uL (0.0-0.6); ABSOLUTE LYMPHOCYTES (AUTO) 1.6 10^3/uL (0.5-4.7); ABSOLUTE MONOCYTES (AUTO) 0.8 10^3/uL (0.1-1.4); ABSOLUTE NEUT (AUTO) 5.7 10^3/uL (1.7-8.2); BASOPHILS % (AUTO) 0.4 % (0-2); EOSINOPHILS % (AUTO) 3.4 % (0-6); HEMATOCRIT 39.2 % (37.9-51.0); MEAN CORPUSCULAR HGB CONC 34.7 g/dL (32.0-36.0); MEAN CORPUSCULAR VOLUME 86 fl (80-97); MONOCYTES % (AUTO) 9.6 % (3-13); PLATELET COUNT 127 10^3/uL (150-450); RED BLOOD COUNT 4.53 10^6/uL (4.35-5.55); RED CELL DISTRIBUTION WIDTH 13.2 % (11.5-14.0); SEGMENTED NEUTROPHILS % (AUTO) 67.6 % (42-78); TOTAL CELLS COUNTED % (AUTO) 100 %; WHITE BLOOD COUNT 8.4 10^3/uL (4.0-10.5)
[2019-09-11 06:21] LABS: HEMOGLOBIN 13.6 g/dL (13.5-17.0)
[2019-09-11 06:30] LABS: ALBUMIN 3.6 g/dL (3.5-5.0); ALKALINE PHOSPHATASE 60 U/L (38-126); ANION GAP 8 (5-19); ASPARTATE AMINO TRANSFERASE 17 U/L (17-59); BILIRUBIN,TOTAL 0.4 mg/dL (0.2-1.3); BLOOD UREA NITROGEN 11 mg/dL (7-20); CALCIUM 8.8 mg/dL (8.4-10.2); CARBON DIOXIDE 26 mmol/L (22-30); CHLORIDE 107 mmol/L (98-107); GLUCOSE 95 mg/dL (75-110); POTASSIUM 3.4 mmol/L (3.6-5.0); TOTAL PROTEIN 6.5 g/dL (6.3-8.2)
[2019-09-11] MEDS: CEFEPIME HCL 2 GM in DEXTROSE 5%-WATER 50 ML IV SCH ×2 (06:50→17:58)
--- NOTE | 2019-09-11 07:41 | PDOC CONSULTATION ---
Consultation Consult Date: 09/11/19 Attending physician:: COLLEEN HICKS Provider Consulted: BRODIE ROMAN Consult reason:: aspiration pneumonia History of Present Illness Admission Date/PCP: 09/08/19 21:11 COLLEEN HICKS MD History of Present Illness: MALIK SALDANA is a 34 year old male patient presents to the emergency department today with arrival by EMS. Patient's history was obtained from the patient's detention and EMS personnel due to the patient's inability to communicate. EMS states the patient has a history of cerebral palsy. EMS states the patient had a seizure x4 hours prior to arrival and was given a diastat by the detention staff. EMS states the patient vomited x1 prior to arrival and the detention staff were worried he aspirated when vomiting because of his history of aspiration pneumonia. Past Medical History Cardiac Medical History: Reports: Hyperlipidema Pulmonary Medical History: Reports: Intubation, Pneumonia, Respiratory Failure Neurological Medical History: Reports: Seizures, Other - Cerebral palsy GI Medical History: Reports: Gastroesophageal Reflux Disease, Hiatal Hernia Psychiatric Medical History: Denies: Depression Traumatic Medical History: Denies: Pneumothorax Hematology: Denies: Sickle Cell Disease Infectious Medical History: Denies: HIV Past Surgical History Past Surgical History: Reports: Other - Multiple chest tubes for bilateral pneumothoraces at . Social History Smoking Status: Never Smoker Electronic Cigarette use?: No Frequency of Alcohol Use: None Hx Recreational Drug Use: No Drugs: None Hx Prescription Drug Abuse: No Family History Family History: Reviewed & Not Pertinent Parental Family History Reviewed: No Children Family History Reviewed: NA Sibling(s) Family History Reviewed.: NA Medication/Allergy Home Medications: Baclofen [Baclofen 20 mg Tablet] 20 mg PO QID 09/08/19 Cholecalciferol (Vitamin D3) [Vitamin D3 1000 Unit Tablet] 1,000 unit PO DAILY 09/08/19 Clindamycin Phos/Benzoyl Perox [Benzaclin Gel 50G Pump] 1 applic TOP BID 09/08/19 Omeprazole 20 mg PO BID 09/08/19 Phenobarbital [Phenobarbital 64.8 mg Tablet] 64.8 mg PO DAILY 09/08/19 Sennosides [Senna] 2 tab PO DAILY 09/08/19 Allergies/Adverse Reactions: amoxicillin trihydrate [From Augmentin] Allergy (Unknown, Verified 09/08/19 17:04) Pertussis Immune Globulin * [Pertussis Immune Globulin] Allergy (Unknown, Verified 09/08/19 17:04) Potassium Clavulanate * [From Augmentin] Allergy (Unknown, Verified 09/08/19 17:04) Review of Systems ROS unobtainable: Due to mental status Physical Exam Vital Signs: Temp Pulse Resp BP Pulse Ox 98.2 F 89 19 102/69 96 09/11/19 03:35 09/11/19 03:35 09/11/19 03:35 09/11/19 03:35 09/11/19 04:39 Intake & Output 09/10/19 09/11/19 09/12/19 06:59 06:59 06:59 Intake Total 2550 1650 Output Total 1375 1250 Balance 1175 400 Weight 60.5 kg 61.4 kg General appearance: PRESENT: no acute distress Head exam: PRESENT: normocephalic Eye exam: PRESENT: EOMI Ear exam: PRESENT: normal external ear exam Mouth exam: PRESENT: moist Teeth exam: PRESENT: dental caries Neck exam: PRESENT: other - still secondary to palsy Respiratory exam: PRESENT: rhonchi Cardiovascular exam: PRESENT: RRR Pulses: PRESENT: normal radial pulses, normal femoral pulses Vascular exam: PRESENT: normal capillary refill Breast: PRESENT: Normal GI/Abdominal exam: PRESENT: soft, other - old g tube site Rectal exam: PRESENT: deferred Extremities exam: PRESENT: other - contractures all 4 exts Neurological exam: PRESENT: alert, awake Psychiatric exam: PRESENT: agitated Skin exam: PRESENT: dry Results Laboratory Results: 09/11/19 05:27 09/11/19 05:27 09/11/19 09/11/19 05:27 05:27 WBC 8.4 RBC 4.53 Hgb 13.6 D Hct 39.2 MCV 86 MCH 30.0 MCHC 34.7 RDW 13.2 Plt Count 127 L Seg Neutrophils % 67.6 Sodium 141.1 Potassium 3.4 L Chloride 107 Carbon Dioxide 26 Anion Gap 8 BUN 11 Creatinine 0.62 Est GFR ( Amer) > 60 Glucose 95 Calcium 8.8 Total Bilirubin 0.4 AST 17 Alkaline Phosphatase 60 Total Protein 6.5 Albumin 3.6 09/08/19 21:21 Throat Throat Culture - Final NORMAL [facility] 09/08/19 19:11 Catheterized Urine Urine Culture - Final NO GROWTH 2 DAYS 09/08/19 09/08/19 19:31 20:40 Troponin I Cancelled < 0.012 Impressions: Chest CT 09/08/19 19:37 IMPRESSION: There are patchy areas of airspace disease predominantly in the lower lobes and in the base of the right middle lobe which may reflect pneumonia. Aspiration is not excluded. Additional patchy areas of alveolar infiltrate are also present in the left upper lobe. Secretions are noted in the trachea and in the left mainstem bronchus. Chest X-Ray 09/10/19 00:00 IMPRESSION: No acute cardiopulmonary process. Assessment & Plan - Diagnosis (1) Aspiration pneumonia Qualifiers: Aspiration pneumonia type: due to regurgitated food Laterality: unspecified laterality Is this a current diagnosis for this admission?: Yes (2) Seizure disorder Is this a current diagnosis for this admission?: Yes (3) Spastic quadriplegic cerebral palsy Is this a current diagnosis for this admission?: Yes (4) Altered mental status Qualifiers: Altered mental status type: unspecified Qualified Code(s): R41.82 - Altered mental status, unspecified - Plan Summary Plan Summary: impression, chronic aspiration pneumonia due to cerebral palsy and seziures primary medical physician requrested a surgical placed jejunostomy tube will plan on placement next wk after rx for his current pneumonia.
[2019-09-11] MEDS: NORMAL SALINE 1000 ML 1,000 ML IV PRN (10:35)
[2019-09-11] MEDS: BACLOFEN 20 MG TABLET PO SCH ×4 (10:35→21:52)
[2019-09-11] MEDS: PHENOBARBITAL 64.8 MG TABLET PO SCH (10:35)
[2019-09-11] MEDS: FAMOTIDINE INJ/PF 20 MG/2 ML SDV IV SCH ×2 (10:35→21:44)
[2019-09-11] MEDS: SENNOSIDES/DOCUSATE 8.6-50 MG 1 EACH TABLET PO SCH (10:35)
[2019-09-11] MEDS: LEVETIRACETAM 500 MG/NACL-ISO 500 MG/100 ML RTUPB IV SCH ×2 (10:35→21:46)
[2019-09-11] MEDS: ENOXAPARIN SODIUM INJ 40 MG/0.4 ML DISP.SYRIN SUBCUT SCH (10:36)
--- NOTE | 2019-09-11 11:45 | PDOC PROGRESS REPORT ---
Subjective Progress Note for:: 09/11/19 Subjective:: Patient admitted for the management of aspiration pneumonia, background history of spastic cerebral palsy, seen by the bedside, scheduled for J tube placement Reason For Visit: PNEUMONIA Physical Exam Vital Signs: Temp Pulse Resp BP Pulse Ox 97.8 F 71 15 122/72 95 09/11/19 07:47 09/11/19 07:47 09/11/19 07:47 09/11/19 07:47 09/11/19 07:47 Intake & Output 09/10/19 09/11/19 09/12/19 06:59 06:59 06:59 Intake Total 2550 1650 1058 Output Total 1375 1250 Balance 8834 255 2198 Weight 60.5 kg 61.4 kg General appearance: PRESENT: no acute distress Eye exam: PRESENT: PERRLA Respiratory exam: PRESENT: clear to auscultation carmen Cardiovascular exam: PRESENT: +S1, +S2 GI/Abdominal exam: PRESENT: soft Neurological exam: PRESENT: alert Results Laboratory Results: 09/11/19 05:27 09/11/19 05:27 09/11/19 09/11/19 05:27 05:27 WBC 8.4 RBC 4.53 Hgb 13.6 D Hct 39.2 MCV 86 MCH 30.0 MCHC 34.7 RDW 13.2 Plt Count 127 L Seg Neutrophils % 67.6 Sodium 141.1 Potassium 3.4 L Chloride 107 Carbon Dioxide 26 Anion Gap 8 BUN 11 Creatinine 0.62 Est GFR ( Amer) > 60 Glucose 95 Calcium 8.8 Total Bilirubin 0.4 AST 17 Alkaline Phosphatase 60 Total Protein 6.5 Albumin 3.6 09/08/19 21:21 Throat Throat Culture - Final NORMAL MICK 09/08/19 19:11 Catheterized Urine Urine Culture - Final NO GROWTH 2 DAYS 09/08/19 09/08/19 19:31 20:40 Troponin I Cancelled < 0.012 Impressions: Chest CT 09/08/19 19:37 IMPRESSION: There are patchy areas of airspace disease predominantly in the lower lobes and in the base of the right middle lobe which may reflect pneumonia. Aspiration is not excluded. Additional patchy areas of alveolar infiltrate are also present in the left upper lobe. Secretions are noted in the trachea and in the left mainstem bronchus. Chest X-Ray 09/10/19 00:00 IMPRESSION: No acute cardiopulmonary process. Assessment & Plan - Diagnosis (1) Epilepsy, unspecified, not intractable, without status epilepticus Qualifiers: Epilepsy type: unspecified Qualified Code(s): G40.909 - Epilepsy, unspecified, not intractable, without status epilepticus Is this a current diagnosis for this admission?: Yes (2) Aspiration pneumonia Qualifiers: Aspiration pneumonia type: due to regurgitated food Laterality: unspecified laterality Is this a current diagnosis for this admission?: Yes Plan: Continue IV antibiotic (3) Spastic quadriplegic cerebral palsy Is this a current diagnosis for this admission?: Yes - Time Time Spent with patient: 25-34 minutes Level of Care: IMCU
[2019-09-12] MEDS: NORMAL SALINE 1000 ML 1,000 ML IV PRN ×2 (01:42→18:08)
[2019-09-12] MEDS: CEFEPIME HCL 2 GM in DEXTROSE 5%-WATER 50 ML IV SCH ×2 (06:26→18:07)
[2019-09-12] MEDS: ENOXAPARIN SODIUM INJ 40 MG/0.4 ML DISP.SYRIN SUBCUT SCH (10:33)
[2019-09-12] MEDS: BACLOFEN 20 MG TABLET PO SCH ×4 (10:39→22:47)
[2019-09-12] MEDS: SENNOSIDES/DOCUSATE 8.6-50 MG 1 EACH TABLET PO SCH (10:39)
[2019-09-12] MEDS: LEVETIRACETAM 500 MG/NACL-ISO 500 MG/100 ML RTUPB IV SCH ×2 (10:39→22:47)
[2019-09-12] MEDS: FAMOTIDINE INJ/PF 20 MG/2 ML SDV IV SCH ×2 (10:39→22:47)
[2019-09-12] MEDS: PHENOBARBITAL 64.8 MG TABLET PO SCH (10:39)
--- NOTE | 2019-09-12 19:01 | PDOC PROGRESS REPORT ---
Subjective Progress Note for:: 09/12/19 Subjective:: Patient with severe mental retardation no participation in medical decision making process awaiting J-tube placement, admitted for aspiration pneumonia Reason For Visit: PNEUMONIA Physical Exam Vital Signs: Temp Pulse Resp BP Pulse Ox 98.2 F 81 18 139/84 H 94 09/12/19 14:54 09/12/19 14:54 09/12/19 14:54 09/12/19 14:54 09/12/19 14:54 Intake & Output 09/11/19 09/12/19 09/13/19 06:59 06:59 06:59 Intake Total 1650 2483 1150 Output Total 1250 900 200 Balance 400 1583 950 Weight 61.4 kg 60.1 kg General appearance: PRESENT: no acute distress Eye exam: PRESENT: PERRLA Respiratory exam: PRESENT: clear to auscultation carmen Cardiovascular exam: PRESENT: +S1, +S2 GI/Abdominal exam: PRESENT: soft Results Laboratory Results: 09/11/19 05:27 09/11/19 05:27 09/08/19 09/08/19 19:31 20:40 Troponin I Cancelled < 0.012 Impressions: Chest CT 09/08/19 19:37 IMPRESSION: There are patchy areas of airspace disease predominantly in the lower lobes and in the base of the right middle lobe which may reflect pneumonia. Aspiration is not excluded. Additional patchy areas of alveolar infiltrate are also present in the left upper lobe. Secretions are noted in the trachea and in the left mainstem bronchus. Chest X-Ray 09/10/19 00:00 IMPRESSION: No acute cardiopulmonary process. Assessment & Plan - Diagnosis (1) Epilepsy, unspecified, not intractable, without status epilepticus Qualifiers: Epilepsy type: unspecified Qualified Code(s): G40.909 - Epilepsy, unspecified, not intractable, without status epilepticus Is this a current diagnosis for this admission?: Yes (2) Aspiration pneumonia Qualifiers: Aspiration pneumonia type: due to regurgitated food Laterality: unspecified laterality Is this a current diagnosis for this admission?: Yes (3) Spastic quadriplegic cerebral palsy Is this a current diagnosis for this admission?: Yes - Time Time Spent with patient: 25-34 minutes Level of Care: IMCU - Plan Summary Plan Summary: Continue present treatment
[2019-09-13] MEDS: CEFEPIME HCL 2 GM in DEXTROSE 5%-WATER 50 ML IV SCH (05:42)
--- NOTE | 2019-09-13 09:09 | PDOC DISCHARGE SUMMARY ---
Impression - Admit/DC Date/PCP Admission Date/Primary Care Provider: 09/08/19 21:11 COLLEEN HICKS MD Discharge Date: 09/13/19 - Discharge Diagnosis (1) Aspiration pneumonia Is this a current diagnosis for this admission?: Yes (2) Fever Is this a current diagnosis for this admission?: Yes (3) Seizure disorder Is this a current diagnosis for this admission?: Yes (4) Spastic quadriplegic cerebral palsy Is this a current diagnosis for this admission?: Yes - Additional Information Discharge Diet: Other (Comments) Discharge Activity: Activity As Tolerated Referrals: COLLEEN HICKS MD [Primary Care Provider] - Follow up as needed Prescriptions: Sulfamethoxazole/Trimethoprim [Bactrim Ds Tablet] 1 each PO BID #12 tablet Levetiracetam [Keppra 500 mg Tablet] 500 mg PO Q12 #60 tablet Home Medications: Baclofen [Baclofen 20 mg Tablet] 20 mg PO QID 09/08/19 Cholecalciferol (Vitamin D3) [Vitamin D3 1000 Unit Tablet] 1,000 unit PO DAILY 09/08/19 Clindamycin Phos/Benzoyl Perox [Benzaclin Gel 50G Pump] 1 applic TOP BID 09/08/19 Omeprazole 20 mg PO BID 09/08/19 Phenobarbital [Phenobarbital 64.8 mg Tablet] 64.8 mg PO DAILY 09/08/19 Sennosides [Senna] 2 tab PO DAILY 09/08/19 Levetiracetam [Keppra 500 mg Tablet] 500 mg PO Q12 #60 tablet 09/13/19 Sulfamethoxazole/Trimethoprim [Bactrim Ds Tablet] 1 each PO BID #12 tablet 09/13/19 History of Present Illiness History of Present Illness: MALIK SALDANA is a 34 year old male This is a 34-year-old male with a cerebral palsy mental retardation's recurrent aspiration pneumonia recently admitted last month brought to the emergency department because of the seizures and patients vomited and aspirated In the emergency department patients Have a fever and some mild respiratory distressed patient's white count is slightly elevated most likely from the aspirations pneumonia with a consistent with a CT of the chest and admitting in the hospital for the further evaluation and treatments Patient have a COVID test done due to the senior living which is also negative And have her 1 more seizures overnight in the hospital start on a Keppra IV Patient's otherwise when I saw it is basically nonverbal but no acute distressed in the floor Continues the IV antibiotics and IV Keppra Hospital Course Hospital Course: This is a 30-year-old male's with a history of the mental retardation cerebral palsy is admitting for the aspirations pneumonia due to the uncontrolled seizures Patient started on IV antibiotics and responds very well patient also at the [facility] Patient having no seizures activities at this point discussed with the caregiver at the senior living and they prefer as per discussed with the patient's family to not putting the G-tube here in the hospital right now and they thought because of the seizures patient have this aspirations They want to take the patient's to the [place] if he have a problem again for the tube placements Speech therapy and modified barium was done within the last 2 months discussed with the senior living caregiver to follow that advice and strict aspirations precautions We will add the Keppra with the phenobarbital and follow outpatients neurology for further evaluations with the seizures Physical Exam Vital Signs: Temp Pulse Resp BP Pulse Ox 97.8 F 93 16 144/83 H 90 L 09/13/19 07:59 09/13/19 07:59 09/13/19 07:59 09/13/19 07:59 09/13/19 07:59 Intake & Output 09/12/19 09/13/19 09/14/19 06:59 06:59 06:59 Intake Total 2483 1200 100 Output Total 900 200 Balance 1583 1000 100 Weight 60.1 kg 58.6 kg General appearance: PRESENT: no acute distress, well-developed, well-nourished Head exam: PRESENT: atraumatic, normocephalic Eye exam: PRESENT: conjunctiva pink, EOMI, PERRLA. ABSENT: scleral icterus Ear exam: PRESENT: normal external ear exam Mouth exam: PRESENT: moist, tongue midline Neck exam: ABSENT: carotid bruit, JVD, lymphadenopathy, thyromegaly Respiratory exam: PRESENT: clear to auscultation carmen. ABSENT: rales, rhonchi, wheezes Cardiovascular exam: PRESENT: RRR. ABSENT: diastolic murmur, rubs, systolic murmur Pulses: PRESENT: normal dorsalis pedis pul Vascular exam: PRESENT: normal capillary refill GI/Abdominal exam: PRESENT: normal bowel sounds, soft. ABSENT: distended, guarding, mass, organolmegaly, rebound, tenderness Rectal exam: PRESENT: deferred Extremities exam: PRESENT: full ROM. ABSENT: calf tenderness, clubbing, pedal edema Neurological exam: PRESENT: alert, awake. ABSENT: motor sensory deficit Psychiatric exam: PRESENT: appropriate affect, normal mood. ABSENT: homicidal ideation, suicidal ideation Skin exam: PRESENT: dry, intact, warm. ABSENT: cyanosis, rash Results Laboratory Results: WBC 8.4 10^3/uL (4.0-10.5) 09/11/19 05:27 RBC 4.53 10^6/uL (4.35-5.55) 09/11/19 05:27 Hgb 13.6 g/dL (13.5-17.0) D 09/11/19 05:27 Hct 39.2 % (37.9-51.0) 09/11/19 05:27 MCV 86 fl (80-97) 09/11/19 05:27 MCH 30.0 pg (27.0-33.4) 09/11/19 05:27 MCHC 34.7 g/dL (32.0-36.0) 09/11/19 05:27 RDW 13.2 % (11.5-14.0) 09/11/19 05:27 Plt Count 127 10^3/uL (150-450) L 09/11/19 05:27 Lymph % (Auto) 19.0 % (13-45) 09/11/19 05:27 Crane % (Auto) 9.6 % (3-13) 09/11/19 05:27 Eos % (Auto) 3.4 % (0-6) 09/11/19 05:27 Baso % (Auto) 0.4 % (0-2) 09/11/19 05:27 Absolute Neuts (auto) 5.7 10^3/uL (1.7-8.2) 09/11/19 05:27 Absolute Lymphs (auto) 1.6 10^3/uL (0.5-4.7) 09/11/19 05:27 Absolute Monos (auto) 0.8 10^3/uL (0.1-1.4) 09/11/19 05:27 Absolute Eos (auto) 0.3 10^3/uL (0.0-0.6) 09/11/19 05: Absolute Basos (auto) 0.0 10^3/uL (0.0-0.2) 09/11/19 05:27 Total Counted 100 09/08/19 19:31 Seg Neutrophils % 67.6 % (42-78) 09/11/19 05: Seg Neuts % (Manual) 86 % (42-78) H 09/08/19 19:31 Lymphocytes % (Manual) 5 % (13-45) L 09/08/19 19:31 Monocytes % (Manual) 9 % (3-13) 09/08/19 19:31 Eosinophils % (Manual) 0 % (0-6) 09/08/19 19:31 Basophils % (Manual) 0 % (0-2) 09/08/19 19:31 Abs Neuts (Manual) 9.4 10^3/uL (1.7-8.2) H 09/08/19 19:31 Abs Lymphs (Manual) 0.5 10^3/uL (0.5-4.7) 09/08/19 19:31 Abs Monocytes (Manual) 1.0 10^3/uL (0.1-1.4) 09/08/19 19:31 Absolute Eos (Manual) 0.0 10^3/uL (0.0-0.6) 09/08/19 19:31 Abs Basophils (Manual) 0.0 10^3/uL (0.0-0.2) 09/08/19 19:31 Platelet Comment ADEQUATE 09/08/19 19:31 RBC Morph Comment NORMO-CYTIC/CHROMIC 09/08/19 19:31 PT 14.3 SEC (11.4-15.4) 09/08/19 19:31 INR 1.11 09/08/19 19:31 APTT 27.1 SEC (23.5-35.8) 09/08/19 19:31 VBG pH 7.41 (7.30-7.42) 09/08/19 19:31 VBG pCO2 41.5 mmHg (35-63) 09/08/19 19:31 VBG HCO3 25.7 mmol/L (20-32) 09/08/19 19:31 VBG Base Excess 0.9 mmol/L 09/08/19 19:31 Sodium 141.1 mmol/L (137-145) 09/11/19 05:27 Potassium 3.4 mmol/L (3.6-5.0) L 09/11/19 05:27 Chloride 107 mmol/L (98-107) 09/11/19 05:27 Carbon Dioxide 26 mmol/L (22-30) 09/11/19 05:27 Anion Gap 8 (5-19) 09/11/19 05:27 BUN 11 mg/dL (7-20) 09/11/19 05:27 Creatinine 0.62 mg/dL (0.52-1.25) 09/11/19 05:27 Est GFR ( Amer) > 60 (>60) 09/11/19 05:27 Est GFR (Non-Af Amer) Cancelled 09/08/19 19:31 Est GFR (MDRD) Non-Af > 60 (>60) 09/11/19 05:27 Glucose 95 mg/dL (75-110) 09/11/19 05:27 POC Glucose 78 mg/dL (70-110) 09/13/19 07:56 Lactic Acid 1.6 mmol/L (0.7-2.1) 09/08/19 19:31 Calcium 8.8 mg/dL (8.4-10.2) 09/11/19 05:27 Total Bilirubin 0.4 mg/dL (0.2-1.3) 09/11/19 05:27 Direct Bilirubin 0.0 mg/dL (0.0-0.4) 09/11/19 05:27 Neonat Total Bilirubin Not Reportable 09/11/19 05:27 Neonat Direct Bilirubin Not Reportable 09/11/19 05:27 Neonat Indirect Bili Not Reportable 09/11/19 05:27 AST 17 U/L (17-59) 09/11/19 05:27 ALT 14 U/L (<50) 09/11/19 05:27 Alkaline Phosphatase 60 U/L (38-126) 09/11/19 05:27 Troponin I < 0.012 ng/mL 09/08/19 20:40 Total Protein 6.5 g/dL (6.3-8.2) 09/11/19 05:27 Albumin 3.6 g/dL (3.5-5.0) 09/11/19 05: Lipase 94.0 U/L (23-300) 09/08/19 20:40 EGFR Cancelled 09/08/19 19:31 Urine Color YELLOW 09/08/19 19:11 Urine Appearance CLEAR 09/08/19 19:11 Urine pH 5.0 (5.0-9.0) 09/08/19 19:11 Ur Specific [place] 1.020 09/08/19 19:11 Urine Protein NEGATIVE mg/dL (NEGATIVE) 09/08/19 19:11 Urine Glucose (UA) NEGATIVE mg/dL (NEGATIVE) 09/08/19 19:11 Urine Ketones 20 mg/dL (NEGATIVE) H 09/08/19 19:11 Urine Blood NEGATIVE (NEGATIVE) 09/08/19 19:11 Urine Nitrite NEGATIVE (NEGATIVE) 09/08/19 19:11 Urine Bilirubin NEGATIVE (NEGATIVE) 09/08/19 19:11 Urine Urobilinogen NEGATIVE mg/dL (<2.0) 09/08/19 19:11 Ur Leukocyte Esterase NEGATIVE (NEGATIVE) 09/08/19 19:11 Urine WBC (Auto) 1 /HPF 09/08/19 19:11 Urine RBC (Auto) 1 /HPF 09/08/19 19:11 Urine Mucus (Auto) OCC /LPF 09/08/19 19:11 Urine Ascorbic Acid NEGATIVE (NEGATIVE) 09/08/19 19:11 Time Trough Drawn 52609/10/19 05:27 Vancomycin Trough 17.1 ug/mL (5.0-20.0) 09/10/19 05:27 SARS-CoV-2 (PCR) NEGATIVE (NEGATIVE) 09/08/19 21:01 09/08/19 09/08/19 19:31 20:40 Troponin I Cancelled < 0.012 Impressions: Chest X-Ray 09/08/19 17:33 IMPRESSION: NO ACUTE RADIOGRAPHIC FINDING IN THE CHEST. Chest CT 09/08/19 19:37 IMPRESSION: There are patchy areas of airspace disease predominantly in the lower lobes and in the base of the right middle lobe which may reflect pneumonia. Aspiration is not excluded. Additional patchy areas of alveolar infiltrate are also present in the left upper lobe. Secretions are noted in the trachea and in the left mainstem bronchus. Chest X-Ray 09/10/19 00:00 IMPRESSION: No acute cardiopulmonary process. Plan Time Spent: Greater than 30 Minutes - Discharge home with the stable conditions aspirations precautions patient is probably still get a benefit with the G-tube Discussed with the caregiver they prefer to take him to the [place] they will make appointment Stroke Is this a Stroke Patient?: No Acute Heart Failure - Is this a Heart Failure Patient?: No
[2019-09-13] MEDS: FAMOTIDINE INJ/PF 20 MG/2 ML SDV IV SCH (09:17)
[2019-09-13] MEDS: BACLOFEN 20 MG TABLET PO SCH (09:17)
[2019-09-13] MEDS: PHENOBARBITAL 64.8 MG TABLET PO SCH (09:17)
[2019-09-13] MEDS: SENNOSIDES/DOCUSATE 8.6-50 MG 1 EACH TABLET PO SCH (09:17)
[2019-09-13] MEDS: ENOXAPARIN SODIUM INJ 40 MG/0.4 ML DISP.SYRIN SUBCUT SCH (09:18)
[2019-09-13] MEDS: LEVETIRACETAM 500 MG/NACL-ISO 500 MG/100 ML RTUPB IV SCH (09:18)
[2019-09-13] MEDS ORDERED: PROPOFOL INJ 200 MG/20 ML VIAL IV ONE (09:32)
[2019-09-13] MEDS ORDERED: FENTANYL CITRATE INJ/PF 100 MCG/2 ML AMPUL ONE (09:32)
[2019-09-13 12:53] VITALS: BP 136/98
== END 2019-09-13 14:16 | disposition other institution (70) | DRG 177 ==
LOC: ER 16:45 → EH 21:11 → 3N 09-09 00:40 → 3W 09-10 15:17
PROVIDERS: ADMIT Family Medicine; ATTEND Family Medicine
DX: J69.0 Pneumonitis due to inhalation of food and vomit (principal); G80.0 Spastic quadriplegic cerebral palsy; F72 Severe intellectual disabilities; K21.9 Gastro-esophageal reflux disease without esophagitis; G40.909 Epilepsy, unspecified, not intractable, without status epilepticus; Z20.828 Contact with and (suspected) exposure to other viral communicable diseases; Z88.0 Allergy status to penicillin; Z88.8 Allergy status to other drugs, medicaments and biological substances; E78.5 Hyperlipidemia, unspecified; K44.9 Diaphragmatic hernia without obstruction or gangrene; Z88.7 Allergy status to serum and vaccine
CPT/HCPCS: 36415; 71045; 71250; 80053; 80202; 81001; 82803; 82962; 83605; 83690; 84484; 85025; 85610; 85730; 87040; 87070; 87086; 87205; 87635; 93005; 93010; 96365; 96372; 99285; J0692; J1650; J1953; J1956; J2060; J2405; J2704; J3010; J3370; J3490; J7030; J7060; S0028